=== PATIENT | female | born 1950 | race Caucasian/White ===

== ENCOUNTER 2020-10-25 23:12 | Inpatient (IN) | payer MEDICARE ==
[2020-10-25] MEDS ORDERED: DIAZEPAM 5 MG/ML 2 ML INJ IVP STA (23:45)
--- NOTE | 2020-10-25 23:45 | ED ---
Extremity Problem HPI - General Chief complaint: Extremity Problem,Nontraumatic Stated complaint: Leg Pain Time Seen by Provider: 10/25/20 23:13 Source: patient, EMS Mode of arrival: EMS Limitations: no limitations - History of Present Illness Initial comments: This patient is a 70-year-old woman who presents to be evaluated for left groin and leg spasms. The patient states that she has had these previously. They seem to have flared up over the past 4 days or so. She states that now anytime she tries to move her left leg she has spasms of pain which will last from seconds to minutes. MD Complaint: extremity pain Onset/Timin -: days(s) Location: left, lower extremity History of Same: Yes Consistency: intermittent Improves with: rest Worsens with: other (Movement) Associated Symptoms: denies other symptoms - Related Data Home Medications Medication Instructions Recorded Confirmed Sertraline [Zoloft] 50 mg PO PC-LUNCH 10/26/20 10/26/20 amLODIPine [Norvasc] 5 mg PO DAILY 10/26/20 10/26/20 Allergies Allergy/AdvReac Type Severity Reaction Status Date / Time shellfish derived [Shellfish] Allergy Anaphylaxis Verified 10/26/20 06:51 Review of Systems ROS Statement: Those systems with pertinent positive or pertinent negative responses have been documented in the HPI. ROS Other: All systems not noted in ROS Statement are negative. Constitutional: Denies: fever, chills Respiratory: Denies: cough, dyspnea Cardiovascular: Denies: chest pain, palpitations, orthopnea, edema Gastrointestinal: Denies: abdominal pain, nausea, vomiting, diarrhea Genitourinary: Denies: dysuria, hematuria Musculoskeletal: Reports: myalgia. Denies: back pain, arthralgia Skin: Denies: rash Neurological: Denies: headache, weakness, numbness Past Medical History Past Medical History: Hypertension Additional Past Medical History / Comment(s): Multiple sclerosis History of Any Multi-Drug Resistant Organisms: None Reported Additional Past Surgical History / Comment(s): bladder surgery Past Psychological History: No Psychological Hx Reported Smoking Status: Never smoker Past Alcohol Use History: Occasional Past Drug Use History: None Reported - Past Family History Father Family Medical History: Hypertension Mother Family Medical History: No Reported History Additional Family Medical History / Comment(s): Mother was healthy. General Exam Limitations: no limitations General appearance: alert, in no apparent distress Head exam: Present: atraumatic, normocephalic Eye exam: Present: normal appearance. Absent: scleral icterus, conjunctival inj ection Neck exam: Present: normal inspection, full ROM Respiratory exam: Present: normal lung sounds bilaterally. Absent: respiratory distress, wheezes, rales, rhonchi, stridor Cardiovascular Exam: Present: regular rate, normal rhythm, normal heart sounds. Absent: systolic murmur, diastolic murmur, rubs, gallop GI/Abdominal exam: Present: soft. Absent: distended, tenderness, guarding, rebound, rigid, mass Extremities exam: Present: normal inspection, full ROM, normal capillary refill, other (The patient does have spasm to the left quadriceps which is intermittent. There is moderate tenderness. No bony deformity). Absent: pedal edema, calf tenderness Back exam: Present: normal inspection. Absent: CVA tenderness (R), CVA tenderness (L) Neurological exam: Present: alert. Absent: motor sensory deficit Skin exam: Present: warm, dry, intact, normal color. Absent: rash Course Vital Signs 10/25/20 10/26/20 10/26/20 23:20 01:00 06:57 Temperature 97.0 F L 97.8 F Pulse Rate 90 82 81 Respiratory 18 16 18 Rate Blood Pressure 160/81 156/84 165/95 O2 Sat by Pulse 98 98 98 Oximetry 10/26/20 10/26/20 09:26 11:45 Temperature Pulse Rate 82 80 Respiratory 18 18 Rate Blood Pressure 146/73 155/89 O2 Sat by Pulse 96 99 Oximetry Medical Decision Making - Medical Decision Making Patient is 70-year-old woman with recurrent spasms to the left quadriceps area and left groin area. She did have some symptom relief with analgesic and with Valium as a smooth muscle relaxant. However when attempting to ambulate the spasms return and she was basically not able to support herself. The patient admitted for further symptom management - Lab Data Result diagrams: 10/27/20 05:25 10/25/20 23:51 Lab Results 10/25/20 10/25/20 10/25/20 Range/Units 23:51 23:51 23:51 WBC 6.7 (3.8-10.6) k/uL RBC 4.68 (3.80-5.40) m/uL Hgb 14.1 (11.4-16.0) gm/dL Hct 40.4 (34.0-46.0) % MCV 86.3 (80.0-100.0) fL MCH 30.1 (25.0-35.0) pg MCHC 34.9 (31.0-37.0) g/dL RDW 13.1 (11.5-15.5) % Plt Count 239 (150-450) k/uL MPV 8.3 Neutrophils % 75 % Lymphocytes % 16 % Monocytes % 7 % Eosinophils % 1 % Basophils % 1 % Neutrophils # 5.0 (1.3-7.7) k/uL Lymphocytes # 1.1 (1.0-4.8) k/uL Monocytes # 0.4 (0-1.0) k/uL Eosinophils # 0.0 (0-0.7) k/uL Basophils # 0.1 (0-0.2) k/uL D-Dimer 0.78 H (<0.60) mg/L FEU Sodium 139 (137-145) mmol/L Potassium 3.9 (3.5-5.1) mmol/L Chloride 105 (98-107) mmol/L Carbon Dioxide 21 L (22-30) mmol/L Anion Gap 13 mmol/L BUN 9 (7-17) mg/dL Creatinine 0.58 (0.52-1.04) mg/dL Est GFR (CKD-EPI)AfAm >90 (>60 ml/min/1.73 sqM) Est GFR (CKD-EPI)NonAf >90 (>60 ml/min/1.73 sqM) Glucose 118 H (74-99) mg/dL Calcium 9.5 (8.4-10.2) mg/dL Phosphorus 1.5 L (2.5-4.5) mg/dL Magnesium 1.7 (1.6-2.3) mg/dL Total Bilirubin 0.5 (0.2-1.3) mg/dL AST 33 (14-36) U/L ALT 16 (4-34) U/L Alkaline Phosphatase 79 (38-126) U/L C-Reactive Protein 0.6 (<1.0) mg/dL Total Protein 7.0 (6.3-8.2) g/dL Albumin 4.2 (3.5-5.0) g/dL - EKG Data -: EKG Interpreted by Me EKG shows normal: sinus rhythm (With sinus arrhythmia), axis (Normal), intervals (Normal) Rate: normal (Rate 63 bpm) Interpretation: other (Patient does have Q waves in leads V2 V3 and 4, which have been present previously on some of the ECGs) Disposition Clinical Impression: Intractable pain, Muscle spasm of left lower extremity, Hypophosphatemia Disposition: ADMITTED IP TO THIS [facility] Condition: Fair
[2020-10-26 00:16] LABS: ALT 16 U/L (4-34); AST 33 U/L (14-36); African American GFR (CKD) >90 (>60 ml/min/1.73 sqM); Albumin 4.2 g/dL (3.5-5.0); Alkaline Phosphatase 79 U/L (38-126); Anion Gap 13 mmol/L; Basophils # (A) 0.1 k/uL (0-0.2); Basophils % (A) 1 %; Blood Urea Nitrogen 9 mg/dL (7-17); Calcium 9.5 mg/dL (8.4-10.2); Carbon Dioxide 21 mmol/L (22-30); Chloride 105 mmol/L (98-107); Eosinophils % (A) 1 %; Glucose 118 mg/dL (74-99); HCT 40.4 % (34.0-46.0); HGB 14.1 gm/dL (11.4-16.0); Lymphocytes # (A) 1.1 k/uL (1.0-4.8); Lymphocytes % (A) 16 %; MCH 30.1 pg (25.0-35.0); MCHC 34.9 g/dL (31.0-37.0); MCV 86.3 fL (80.0-100.0); Magnesium 1.7 mg/dL (1.6-2.3); Mean Platelet Volume 8.3; Monocytes # (A) 0.4 k/uL (0-1.0); Monocytes % (A) 7 %; Neutrophils % (A) 75 %; Non-African American GFR(CKD) >90 (>60 ml/min/1.73 sqM); Phosphorus 1.5 mg/dL (2.5-4.5); Platelet Count 239 k/uL (150-450); RBC 4.68 m/uL (3.80-5.40); RDW 13.1 % (11.5-15.5); Sodium 139 mmol/L (137-145); Total Bilirubin 0.5 mg/dL (0.2-1.3); WBC 6.7 k/uL (3.8-10.6)
[2020-10-26 00:22] LABS: Potassium 3.9 mmol/L (3.5-5.1)
--- NOTE | 2020-10-26 00:27 | XR ---
EXAMINATION TYPE: XR femur LT DATE OF EXAM: 10/26/2020 COMPARISON: NONE HISTORY: Femur pain. Fall. TECHNIQUE: 6 views FINDINGS: There is narrowing of the knee joint spaces. The acetabulum is intact. Proximal femur is in tact. There is spurring on the patella. There is some calcification of the menisci at the knee. IMPRESSION: Moderate osteoarthritis and chondrocalcinosis at the knee joint. No fracture seen. No kaela dence of a hip fracture.
[2020-10-26] MEDS ORDERED: POTAS-SOD-PHOS 278-164-250 MG 1 EACH PACKET PO STA (00:33)
[2020-10-26] MEDS ORDERED: SODIUM CHLORIDE 0.9% 1,000 ML IV ONE (00:33)
[2020-10-26 01:01] LABS: C Reactive Protein 0.6 mg/dL (<1.0)
--- NOTE | 2020-10-26 01:05 | US ---
EXAMINATION TYPE: US venous doppler duplex LE LT DATE OF EXAM: 10/26/2020 12:56 AM COMPARISON: NONE CLINICAL HISTORY: leg pain. Patient stated has MS and has left leg pain, swelling, muscle cramps, spa sms x 3 weeks; ambulates with walker and stated her back has been sore SIDE PERFORMED: Left TECHNIQUE: The lower extremity deep venous system is examined utilizing real time linear array sonog breanna with graded compression, doppler sonography and color-flow sonography. VESSELS IMAGED: Common Femoral Vein Deep Femoral Vein Greater Saphenous Vein * Femoral Vein: limited compression as unable to compress mid and distally due to patient's intolerance of this maneuver with painful left leg. Popliteal Vein Small Saphenous Vein * Proximal Calf Veins (* superficial vessels) Left Leg: Negative for DVT. IMPRESSION: No evidence of deep vein thrombosis in the left leg.
[2020-10-26] MEDS ORDERED: NALOXONE 0.4 MG/ML 1 ML VIAL IV PRN (01:42)
[2020-10-26] MEDS ORDERED: MORPHINE SULFATE 4 MG/ML SYRINGE IV STA (01:46)
[2020-10-26] MEDS: LACTATED RINGERS 1,000 ML IV SCH ×3 (02:42→17:19)
[2020-10-26] MEDS: ONDANSETRON 4 MG/2 ML VIAL IVP PRN ×2 (06:54→12:58)
[2020-10-26] MEDS: POTAS-SOD-PHOS 278-164-250 MG 1 EACH PACKET PO SCH ×3 (09:27→22:05)
[2020-10-26] MEDS: amLODIPine 5 MG TAB PO SCH (09:27)
[2020-10-26] MEDS ORDERED: Phosphorus Replacement Protoco 1 EACH MISC MISCELLANE PRN (11:18)
[2020-10-26] MEDS ORDERED: DEXAMETHASONE SOD PHOSPHATE 10 MG/ML 1 ML VIAL IV STA (11:45)
[2020-10-26] MEDS ORDERED: LORazepam 2 MG/ML INJ IV PRN (11:52)
--- NOTE | 2020-10-26 12:06 | P.HPIM ---
History of Present Illness This is a pleasant 70 years old female with past medical history of multiple sclerosis and hypertension. She is from [place] and visiting [place] from August to January. Her PCP at [place] is Dr. Harris (not sure of spelling !!) Patient presents because of muscle spasm in the left lower extremity. Her left leg becomes has been going on for the last month, she cannot sleep tenderness in certain ways because of her leg pain. Last night. Left leg pain was significantly worse so she decided to come to emergency room. She rates her pain at 8/10. Also patient could not walk yesterday. States that she has weakness in her left leg also for years but got worse lately and yesterday she hardly couldn't walk. Currently she has difficulty extending her knee and flex and hurt her left hip. Else patient denies headache but she has some dizziness that time and she felt few weeks ago. She also has some pain in her left hip with tenderness She states that she has chronic low back pain that securely get worse, this year it was the worst, she rates her back pain as 5/10. And try to get into the left side Patient denies any abdominal pain, no nausea vomiting, no change in bowel habits Patient says that she has chronic hesitancy with urination for years, she has to wait 10 minutes before urination/initiation. Patient states that she's been diagnosed with an normal hiatal about 25 years ago for numbness in both feet and fingers/hand, and that time it partially improved with prednisone. The symptoms are chronic with no recent worsening. Follow-up with the neurologist She denies smoking, alcohol or illicit drugs Vitas looks stable, patient is afebrile, there is slightly elevated at 146/73. CBC and BMP and liver enzymes are unremarkable except for low phosphorus at 1.5. C-reactive protein is normal at 0.6. Coronary first not detected D-dimer is 0.78. Doppler of the left lower extremity is negative for DVT Left femoral x-ray: chondrocalcinosis in the left knee joint. No evidence of hip fracture In the emergency room patient given Valium 5 mg and 1 L of normal saline. Review of Systems CONSTITUTIONAL: No fever, no malaise, no fatigue. HEENT: No recent visual problems or hearing problems. Denied any sore throat. CARDIOVASCULAR: No orthopnea, PND, no palpitations, no syncope. PULMONARY: No shortness of breath, no cough, no hemoptysis. GASTROINTESTINAL: No diarrhea, no nausea, no vomiting, no abdominal pain. Normoactive bowel sounds. NEUROLOGICAL: No headaches, no tremor HEMATOLOGICAL: Denies any bleeding or petechiae. GENITOURINARY: Denies any burning micturition, frequency, or urgency. MUSCULOSKELETAL/RHEUMATOLOGICAL: Denies any joint pain, swelling ENDOCRINE: Denies any polyuria or polydipsia. Past Medical History Past Medical History: Hypertension Additional Past Medical History / Comment(s): Multiple sclerosis History of Any Multi-Drug Resistant Organisms: None Reported Additional Past Surgical History / Comment(s): bladder surgery Past Psychological History: No Psychological Hx Reported Smoking Status: Never smoker Past Alcohol Use History: Occasional Past Drug Use History: None Reported Medications and Allergies Home Medications Medication Instructions Recorded Confirmed Type Sertraline [Zoloft] 50 mg PO PC-LUNCH 10/26/20 10/26/20 History amLODIPine [Norvasc] 5 mg PO DAILY 10/26/20 10/26/20 History Allergies Allergy/AdvReac Type Severity Reaction Status Date / Time shellfish derived [Shellfish] Allergy Anaphylaxis Verified 10/26/20 06:51 Physical Exam Vitals: Vital Signs Temp Pulse Resp BP Pulse Ox 10/26/20 09:26 82 18 146/73 96 10/26/20 06:57 97.8 F 81 18 165/95 98 10/26/20 01:00 82 16 156/84 98 10/25/20 23:20 97.0 F L 90 18 160/81 98 Intake and Output 10/25/20 10/26/20 10/26/20 22:59 06:59 14:59 Other: Weight 77.111 kg GENERAL: The patient is alert and oriented x3, not in any acute distress. Well developed, well nourished. HEENT: Pupils are round and equally reacting to light. EOMI. No scleral icterus. No conjunctival pallor. Normocephalic, atraumatic. No pharyngeal erythema. No thyromegaly. CARDIOVASCULAR: S1 and S2 present. No murmurs, rubs, or gallops. PULMONARY: Chest is clear to auscultation, no wheezing or crackles. ABDOMEN: Soft, nontender, nondistended, normoactive bowel sounds. No palpable organomegaly. MUSCULOSKELETAL: No joint swelling or deformity. EXTREMITIES: No cyanosis, clubbing, or pedal edema. -NEUROLOGICAL: Cranial nerves are grossly intact . Limited extension of the left knee and excision of the left hip. Strength in upper extremities are 5/5. Patient is intact. No signs are absent SKIN: No rashes. No petechiae Results CBC & Chem 7: 10/25/20 23:51 10/25/20 23:51 Labs: Abnormal Lab Results - Last 24 Hours (Table) 10/25/20 10/25/20 Range/Units 23:51 23:51 D-Dimer 0.78 H (<0.60) mg/L FEU Carbon Dioxide 21 L (22-30) mmol/L Glucose 118 H (74-99) mg/dL Phosphorus 1.5 L (2.5-4.5) mg/dL Assessment and Plan Assessment: progressive Left leg weakness and pain over the last month associated with low back pain. Rule out lumbar stenosis or cauda equina syndrome. Difficulty walking secondary to above Significant hypophosphatemia Chronic urinary hesitancy Essential hypertension Multiple sclerosis with chronic numbness of feet and hands as per patient Plan: This is a pleasant 70 years old female presents with left spasm and low phosphorus. Replaced phosphorus per protocol. Muscle relaxants. Consult Dr. Ibanez spine surgery. We will order stat MRI of the lumbar spine. Start the patient on dexamethasone. Check a bladder scan and urinalysis labs and medication were reviewed.. Continue same treatment. Continue with symptomatic treatment. Resume home medication. Monitor lytes and vitals. DVT and GI prophylaxis. Further recommendations depends on the clinical course of the patient DVT prophylaxis: Subcutaneous heparin. To be initiated after MRI results GI Prophylaxis: Pepcid PT/OT: Pending Prognosis is guarded
--- NOTE | 2020-10-26 12:30 | XR ---
EXAMINATION TYPE: XR Hip Complete LT DATE OF EXAM: 10/26/2020 CLINICAL HISTORY: Left hip pain, history of fall TECHNIQUE: AP and frogleg views of the left hip are obtained. COMPARISON: None. FINDINGS: There is no acute fracture/dislocation evident in the left hip. There are degenerative reena nges in the left hip. IMPRESSION: There is no acute fracture or dislocation in the left hip.
[2020-10-26] MEDS: MORPHINE SULFATE 4 MG/ML SYRINGE IVP PRN ×2 (12:51→23:57)
[2020-10-26] MEDS: DEXAMETHASONE SOD PHOSPHATE 4 MG/ML 1 ML VIAL IV SCH ×3 (13:00→23:57)
[2020-10-26] MEDS: SERTRALINE 50 MG TAB PO SCH (13:06)
--- NOTE | 2020-10-26 15:08 | MR ---
EXAMINATION TYPE: MR lumbar spine wo con DATE OF EXAM: 10/26/2020 COMPARISON: None HISTORY: Left leg weakness, and pain. TECHNIQUE: Multiplanar, multisequence images of the lumbar spine were acquired. L1-L2: Normal disc appearance without desiccation. No herniation, protrusion or disc bulging. No ca nal stenosis is present. Foramina are patent bilaterally. L2-L3: Minimal posterior broad-based disc bulge causes slight anterior mass effect on the thecal sac. There is some facet arthropathy change. L3-L4: There is a posterior central disc bulge causing mild anterior mass effect on the thecal sac. F acet arthropathy with hypertrophy ligamentum flavum causes posterior lateral mass effect on the theca l sac. No significant foraminal encroachment. L4-L5: No disc herniation. Listhesis contributes to cause foraminal encroachment. There is facet arth ropathy change present causing some posterior lateral mass effect on the thecal sac. L5-S1: Listhesis contributes to cause bilateral foraminal encroachment. No evident disc herniation. T here is facet arthropathy change. Lateral mass effect is present due to the hypertrophic changes at t he facets, some reduced transverse dimension of the spinal canal is present and there is some encroac hment on the lateral recesses. There is an apparent mass effect on the left lateral thecal sac, axial image #12, this causes some ob liquely-oriented intermediate signal focus on sagittal image 8 on the spinal canal possibly related t o the dura, no evident abnormal soft tissue mass is present. Lumbar segments are remarkable for anterolisthesis grade 1 at L4-5, L5-S1 shows anterolisthesis grade 1 to grade 2, bilateral spondylolysis is suspected at L5, there is associated loss of disc height si gnal greatest at L5-S1, there is endplate discogenic marrow signal change, multilevel spondylosis, no significant central stenosis. No paraspinal masses are identified. Conus medullaris has a normal a ppearance. Accentuated lordosis is present at the lower lumbar spine. There is a slight spinal curvat ure. The common bile duct the level of the head of the pancreas measures 13 mm. There is an extrarenal pel vis right kidney. IMPRESSION: Analysis L5 with spondylolisthesis grade 1 to grade 2, degenerative disc disease as described with mu ltilevel facet arthropathy, foraminal encroachment. Dilated common bile duct, indeterminate. Unusual appearance to the dura at the level of L5-S1, contrast-enhanced exam may be of benefit.
[2020-10-26 23:21] LABS: Appearance,Urine Clear (Clear); Bilirubin,Urine Negative (Negative); Blood,Urine Negative (Negative); Color,Urine Light Yellow; Glucose,Urine (UA) Negative (Negative); Ketones,Urine Negative (Negative); Leukocyte Esterase,Urine Negative (Negative); Nitrite,Urine Negative (Negative); PH, Urine 6.5 (5.0-8.0); Protein,Urine Negative (Negative); Specific Gravity,Urine 1.006 (1.001-1.035); Urobilinogen,Urine <2.0 mg/dL (<2.0)
[2020-10-27] MEDS: LACTATED RINGERS 1,000 ML IV SCH ×3 (02:12→19:31)
[2020-10-27] MEDS: DEXAMETHASONE SOD PHOSPHATE 4 MG/ML 1 ML VIAL IV SCH ×4 (05:13→23:44)
[2020-10-27 06:07] LABS: Basophils % (A) 0 %; Eosinophils % (A) 0 %; HCT 39.7 % (34.0-46.0); Lymphocytes # (A) 0.7 k/uL (1.0-4.8); Lymphocytes % (A) 13 %; MCH 29.2 pg (25.0-35.0); MCHC 32.8 g/dL (31.0-37.0); Mean Platelet Volume 7.8; Monocytes # (A) 0.3 k/uL (0-1.0); Monocytes % (A) 5 %; Neutrophils # (A) 4.2 k/uL (1.3-7.7); Neutrophils % (A) 81 %; Platelet Count 202 k/uL (150-450); RBC 4.46 m/uL (3.80-5.40); RDW 13.6 % (11.5-15.5); WBC 5.2 k/uL (3.8-10.6)
[2020-10-27] MEDS: TAMSULOSIN 0.4 MG CAP.ER.24H PO SCH (07:39)
[2020-10-27] MEDS: HEPARIN SODIUM,PORCINE/PF 5,000 UNIT/0.5 ML SYRINGE SQ SCH ×2 (07:39→21:49)
[2020-10-27] MEDS: POTAS-SOD-PHOS 278-164-250 MG 1 EACH PACKET PO SCH ×3 (07:39→21:49)
[2020-10-27] MEDS: amLODIPine 5 MG TAB PO SCH (07:39)
[2020-10-27 11:49] LABS: Glucose,Whole Blood 102 mg/dL (75-99)
[2020-10-27] MEDS: SERTRALINE 50 MG TAB PO SCH (12:31)
--- NOTE | 2020-10-27 12:38 | P.GSCN ---
History of Present Illness Consult date: 10/27/20 History of present illness: This is a pleasant 70-year-old female with advanced multiple sclerosis who presented to the emergency room because of severe left sided lower abdominal and left leg pain. She has not seen a neurologist for several years and she went through all the neurologic treatments for her MS and they had ceased working. She stated over the last couple years she has had increased problems with walking. It was getting worse such that she sought neurologic care in [place] where she lives most of the year however due to insurance reasons was not able to see a neurologist. She has been up in [place] since August. She is here until early January. She developed the neurologic issues and thus presented to the emergency room. She is feeling much better. She had an MRI. During this hospitalization she has noticed to have incomplete emptying and we're asked see the patient. Urologically the patient states for the last couple years she has had increasing difficulty with urination. 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 Her residual this afternoon was 225 mL at about 45 minutes postvoid. She denies infection. She has occasional incontinence. There is no stone. There is no previous urologic history. Urine was clear. Her urine is clear Review of Systems Review of systems are normal except for that related to the history and physical All systems: negative Past Medical History Past Medical History: Hypertension Additional Past Medical History / Comment(s): Multiple sclerosis History of Any Multi-Drug Resistant Organisms: None Reported Past Surgical History: Cholecystectomy Additional Past Surgical History / Comment(s): bladder surgery Past Anesthesia/Blood Transfusion Reactions: No Reported Reaction Past Psychological History: No Psychological Hx Reported Smoking Status: Never smoker Past Alcohol Use History: Occasional Past Drug Use History: None Reported - Past Family History Father Family Medical History: Hypertension Mother Family Medical History: No Reported History Additional Family Medical History / Comment(s): Mother was healthy. Medications and Allergies Home Medications Medication Instructions Recorded Confirmed Type Sertraline [Zoloft] 50 mg PO PC-LUNCH 10/26/20 10/26/20 History amLODIPine [Norvasc] 5 mg PO DAILY 10/26/20 10/26/20 History Allergies Allergy/AdvReac Type Severity Reaction Status Date / Time shellfish derived [Shellfish] Allergy Anaphylaxis Verified 10/26/20 06:51 Surgical - Exam Vital Signs Temp Pulse Resp BP Pulse Ox 97.0 F L 90 18 160/81 98 10/25/20 23:20 10/25/20 23:20 10/25/20 23:20 10/25/20 23:20 10/25/20 23:20 - General well developed, well nourished, no distress - Eyes PERRL - ENT no hearing loss - Neck trachea midline - Respiratory normal expansion, normal respiratory effort - Cardiovascular Rhythm: regular - Abdomen Abdomen: soft, non tender - Neurologic normal sensation - Musculoskeletal normal posture - Psychiatric oriented to time, oriented to person, oriented to place, speech is normal, memory intact Results - Labs 10/27/20 05:25 10/25/20 23:51 Abnormal Lab Results - Last 24 Hours (Table) 10/27/20 10/27/20 Range/Units 05:25 11:47 Lymphocytes # 0.7 L (1.0-4.8) k/uL POC Glucose (mg/dL) 102 H (75-99) mg/dL - Imaging Additional studies: MRI of the lumbar spine report reviewed Assessment and Plan Assessment: Impression: Advanced multiple sclerosis. Left leg pain. Abnormal MRI as noted per radiology interpretation. Incomplete bladder emptying consistent with neurogenic bladder from multiple sclerosis Recommendations: We'll intermittently check urine residuals. At this point in time I do not think she needs to be catheterized earlier attempt intermittent catheterization. She was started on Flomax but due to the detrusor sphincter dyssynergia it usually does not help. I will follow with you. Time with Patient: Greater than 30
[2020-10-27 12:45] VITALS: BMI 28.3
[2020-10-27 14:06] LABS: African American GFR (CKD) 112.1 (60.0-200.0); Anion Gap 8.3 mmol/L (4.00-12.00); Carbon Dioxide 24.7 mmol/L (21.6-31.8); Non-African American GFR(CKD) 96.7 (60.0-200.0); Phosphorus 3.8 mg/dL (2.4-5.1); Potassium 3.7 mmol/L (3.5-5.5)
--- NOTE | 2020-10-27 16:12 | P.CNOR ---
History of Present Illness - [facility] Consult date: 10/27/20 Consult reason: other (Left lower extremity pain) History of present illness: Patient is a 70-year-old female presented to [facility] due to severe muscle spasms and pain involving the left lower extremity. Patient is a resident of [place], she spends 4-5 months admission and every summer visiting family and friends. patient has a relatively detailed medical history, this concluded diagnosis of MS, she was diagnosed over 25 years ago. According the patient, she has been on many different medications. She has not followed up with a neurologist in over 5 years and currently is not taking any numbness medications. Patient states that her gait has gotten worse over the last few years, es pecially in the last 2-3 months. She utilizes a walker at all times. She is noticed the muscle spasms on the left lower extremity have also worsened in the last 2-3 months, in the last week she states it's become unbearable. She notes numbness and tingling in the bilateral upper extremities, more specifically the hands and fingers, she also notices this in the lower extremities more specifically in the bilateral feet. She has a difficult time with ambulation due to feeling unsteady when walking. She denies any acute trauma, she states that her last fall was about 2 months ago. Patient denies any previous surgery of the lower extremities or lumbar, thoracic or cervical spine. Patient denies any severe weakness involving the upper extremities. She notes weakness in the left lower extremity since the spasming is Worse over the last week. Patient denies any numbness or tingling in the genital region or perineal region. She denies any loss of bowel or bladder control. Patient does admit that she fails to empty her bladder on most occasions, this is for quite some time. Review of Systems Constitutional: Reports as per HPI Past Medical History Past Medical History: Hypertension Additional Past Medical History / Comment(s): Multiple sclerosis History of Any Multi-Drug Resistant Organisms: None Reported Past Surgical History: Cholecystectomy Additional Past Surgical History / Comment(s): bladder surgery Past Anesthesia/Blood Transfusion Reactions: No Reported Reaction Past Psychological History: No Psychological Hx Reported Smoking Status: Never smoker Past Alcohol Use History: Occasional Past Drug Use History: None Reported - Past Family History Father Family Medical History: Hypertension Mother Family Medical History: No Reported History Additional Family Medical History / Comment(s): Mother was healthy. Medications and Allergies Home Medications Medication Instructions Recorded Confirmed Type Sertraline [Zoloft] 50 mg PO PC-LUNCH 10/26/20 10/26/20 History amLODIPine [Norvasc] 5 mg PO DAILY 10/26/20 10/26/20 History Allergies Allergy/AdvReac Type Severity Reaction Status Date / Time shellfish derived [Shellfish] Allergy Anaphylaxis Verified 10/26/20 06:51 Physical Examination Gen: AOx3, NAD VSS stable at this time Integument: No open lesions or sores are visualized throughout the cervical, thoracic, lumbar region. There is no open lesions or sores present about the left lower extremity. Palpation: Patient is nontender with palpation throughout the cervical, thoracic or lumbar region including the midline or paraspinal. She is nontender with palpation throughout the left lower extremity ROM: Full range of motion in all major muscle groups of the bilateral upper extremities Full range of motion in all major muscle groups of the right lower extremity, left lower extremity range of motion is limited with hip flexion along with knee flexion and knee extension due to pain. Plantar flexion, dorsiflexion, EHL, FHL are intact Sensory Exam: Senory exam to light touch is intact C5-T1 Senosry exam to light touch is intact L2-S1 Motor: 5 out of 5 strength is appreciated in the bilateral upper extremities with shoulder abduction, forward elevation, elbow extension, elbow flexion, wrist extension, wrist flexion, intrinsics 5 out of 5 strength is appreciated in the right lower extremity with hip flexion, knee extension, knee flexion, plantar flexion, dorsiflexion, EHL, FHL. 4 out of 5 strength is appreciated in the left lower extremity with plantar flexion, dorsiflexion, EHL, FHL. 3 out of 5 strength is appreciated with knee extension, knee flexion, hip flexion. Special tests: Negative Obey's, negative Babinski, negative clonus bilaterally More specific exam of the left lower extremity demonstrates no point tenderness with palpation surrounding the foot or ankle, knee, hip, greater trochanteric region. Passive range of motion is very difficult due to the severe stiffness, mainly with internal and external rotation along with flexion of the hip. Results - Labs Labs: Abnormal Lab Results - Last 24 Hours (Table) 10/27/20 10/27/20 10/27/20 Range/Units 05:25 05:25 11:47 Lymphocytes # 0.7 L (1.0-4.8) k/uL Chloride 110 H (96-109) mmol/L BUN 6.0 L (9.0-27.0) mg/dL Creatinine 0.5 L (0.6-1.5) mg/dL Glucose 133 H (70-110) mg/dL POC Glucose (mg/dL) 102 H (75-99) mg/dL H & H 10/25/20 10/27/20 Range/Units 23:51 05:25 Hgb 14.1 13.0 (11.4-16.0) gm/dL Hct 40.4 39.7 (34.0-46.0) % Result Diagrams: 10/27/20 05:25 10/27/20 05:25 - Diagnostic results Lumbar MRI with contrast: report reviewed, image reviewed Assessment and Plan Assessment: Left lower extremity pain Left lower extremity muscle spasm/cramping L4-L5 grade 1 spondylolisthesis L5-S1 grade 2 spondylolisthesis Multilevel lumbar spine spondylosis Multiple sclerosis Other medical comorbidities Plan: I was able to discuss the case, including with physical exam findings and imaging studies my attending Dr. Fung. No emergent orthopedic surgical intervention recommended at this time. MRI finding do demonstrate the L4-L5 and L5-S1 spondylolisthesis, chronic in nature. Taking in consideration the patient's history of MS and not having any treatment in many years, this is also likely an exacerbation of those. After reviewing urology's note, this is likely also the cause of her urinary retention. Patient did admit that after receiving the initial dose of the IV steroids she did notice improvement. We would recommend continuing those at this time. 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 GI and DVT prophylaxis per primary medical service Recommend weightbearing as tolerated with walker all times, PT evaluation We will continue to follow during inpatient stay Time with Patient: Less than 30
[2020-10-27] MEDS: CYCLOBENZAPRINE 10 MG TAB PO PRN (17:44)
[2020-10-27] MEDS: GABAPENTIN 300 MG CAP PO SCH (17:45)
--- NOTE | 2020-10-27 20:44 | P.PN ---
Subjective This is a pleasant 70 years old female with past medical history of multiple sclerosis and hypertension. She is from [place] and visiting [place] from August to January. Her PCP at [place] is Dr. Harris (not sure of spelling !!) Patient presents because of muscle spasm in the left lower extremity. Her left leg becomes has been going on for the last month, she cannot sleep tenderness in certain ways because of her leg pain. Last night. Left leg pain was significantly worse so she decided to come to emergency room. She rates her pain at 8/10. Also patient could not walk yesterday. States that she has weakness in her left leg also for years but got worse lately and yesterday she hardly couldn't walk. Currently she has difficulty extending her knee and flex and hurt her left hip. Else patient denies headache but she has some dizziness that time and she felt few weeks ago. She also has some pain in her left hip with tenderness She states that she has chronic low back pain that securely get worse, this year it was the worst, she rates her back pain as 5/10. And try to get into the left side Patient denies any abdominal pain, no nausea vomiting, no change in bowel habits Patient says that she has chronic hesitancy with urination for years, she has to wait 10 minutes before urination/initiation. Patient states that she's been diagnosed with an normal hiatal about 25 years ago for numbness in both feet and fingers/hand, and that time it partially improved with prednisone. The symptoms are chronic with no recent worsening. Follow-up with the neurologist She denies smoking, alcohol or illicit drugs Vitas looks stable, patient is afebrile, there is slightly elevated at 146/73. CBC and BMP and liver enzymes are unremarkable except for low phosphorus at 1.5. C-reactive protein is normal at 0.6. Coronary first not detected D-dimer is 0.78. Doppler of the left lower extremity is negative for DVT Left femoral x-ray: chondrocalcinosis in the left knee joint. No evidence of hip fracture In the emergency room patient given Valium 5 mg and 1 L of normal saline. 10/27/2020 Patient today stating sick improvement but partial in her left leg spasm, pain and weakness." Whatever you do it is helping me" Patient's MRI showing chronic changes with no significant spinal stenosis. Patient has L4-L5 grade 1 spondylolisthesis, L5-S1 grade 2 spondylolisthesis, Multilevel lumbar spine spondylosis. Also left knee x-ray shows severe osteoarthritis. Orthopedic team recommended physical therapy and follow-up outpatient for possible surgical management discussion with the patient. Patient with chronic urinary retention, urologist think it's neurogenic bladder related to MS We will consult neurology service for possible M multiple sclerosis flareup. Continue with dexamethasone for now. Discontinue Ringer lactate. Continue with Attempting and flexor Review of Systems CONSTITUTIONAL: No fever, no malaise, no fatigue. HEENT: No recent visual problems or hearing problems. Denied any sore throat. CARDIOVASCULAR: No orthopnea, PND, no palpitations, no syncope. PULMONARY: No shortness of breath, no cough, no hemoptysis. GASTROINTESTINAL: No diarrhea, no nausea, no vomiting, no abdominal pain. Normoa ctive bowel sounds. NEUROLOGICAL: No headaches, no tremor Active Medications Generic Name Dose Route Start Last Admin Trade Name Freq PRN Reason Stop Dose Admin Amlodipine Besylate 5 mg 10/26/20 09:15 10/27/20 07:39 Amlodipine 5 Mg Tab PO 5 mg DAILY JERONIMO Administration Cyclobenzaprine HCl 10 mg 10/27/20 15:58 10/27/20 17:44 Cyclobenzaprine 10 Mg Tab PO 10 mg BID PRN Administration Muscle Spasm Dexamethasone Sodium Phosphate 4 mg 10/26/20 18:00 10/27/20 15:16 Dexamethasone Sod Phosphate 4 Mg/Ml 1 Ml Vial IV 4 mg Q6HR JERONIMO Administration Gabapentin 300 mg 10/27/20 21:00 10/27/20 17:45 Gabapentin 300 Mg Cap PO 300 mg BID JERONIMO Administration Heparin Sodium (Porcine) 5,000 unit 10/27/20 09:00 10/27/20 07:39 Heparin Sodium,Porcine/Pf 5,000 Unit/0.5 Ml Syringe SQ 5,000 unit Q12HR JERONIMO Administration Lorazepam 0.5 mg 10/26/20 11:52 10/26/20 13:55 Lorazepam 2 Mg/Ml Inj IV 0.5 mg ONCE PRN Administration Severe Anxiety Miscellaneous Information 1 each 10/26/20 11:18 Phosphorus Replacement Protoco 1 Each Misc MISCELLANE DAILY PRN Per Protocol Protocol Morphine Sulfate 4 mg 10/26/20 11:46 10/26/20 23:57 Morphine Sulfate 4 Mg/Ml Syringe IVP 4 mg Q4HR PRN Administration Pain Naloxone HCl 0.2 mg 10/26/20 01:42 Naloxone 0.4 Mg/Ml 1 Ml Vial IV Q2M PRN Opioid Reversal Ondansetron HCl 4 mg 10/26/20 06:45 10/26/20 12:58 Ondansetron 4 Mg/2 Ml Vial IVP 4 mg Q8HR PRN Administration Nausea Potassium Phos/Sodium Phos 1 each 10/26/20 09:00 10/27/20 15:15 Hcghn-Gne-Hmyo [id number] Mg 1 Each Packet PO 1 each TID JERONIMO Administration Sertraline HCl 50 mg 10/26/20 13:30 10/27/20 12:31 Sertraline 50 Mg Tab PO 50 mg PC-LUNCH JERONIMO Administration Tamsulosin HCl 0.4 mg 10/27/20 08:30 10/27/20 07:39 Tamsulosin 0.4 Mg Cap.Er.24h PO 0.4 mg PC-BRKFST JERONIMO Administration Objective - Vital Signs Vital signs: Vital Signs Temp 97.9 F 10/27/20 20:25 Pulse 72 10/27/20 20:25 Resp 16 10/27/20 20:25 BP 130/66 10/27/20 20:25 Pulse Ox 94 L 10/27/20 20:25 Intake & Output 10/27/20 10/27/20 10/28/20 06:59 18:59 06:59 Intake Total 1500 1000 Output Total 440 Balance 1500 560 Weight 77.111 kg Intake: Intake, IV Titration 1500 1000 Amount Lactated Ringers 1,000 ml 1500 1000 @ 125 mls/hr IV .Q8H [facility] Rx#:[id number] Output: Post Void Residual 440 Other: Voiding Method Bedside Commode Bedside Commode Bedside Commode # Voids 1 1 - Labs CBC & Chem 7: 10/27/20 05:25 10/27/20 05:25 Labs: Abnormal Lab Results - Last 24 Hours (Table) 10/27/20 10/27/20 10/27/20 Range/Units 05:25 05:25 11:47 Lymphocytes # 0.7 L (1.0-4.8) k/uL Chloride 110 H (96-109) mmol/L BUN 6.0 L (9.0-27.0) mg/dL Creatinine 0.5 L (0.6-1.5) mg/dL Glucose 133 H (70-110) mg/dL POC Glucose (mg/dL) 102 H (75-99) mg/dL Assessment and Plan Assessment: progressive Left leg weakness and pain over the last month associated with low back pain. Chronic back pain with 4-L5 grade 1 spondylolisthesis, L5-S1 grade 2 spondylolisthesis Severe left knee osteoarthritis Difficulty walking secondary to above Significant hypophosphatemia Chronic urinary hesitancy Essential hypertension Multiple sclerosis with chronic numbness of feet and hands as per patient Plan: This is a pleasant 70 years old female presents with left spasm and low phosphorus. Replaced phosphorus per protocol. Muscle relaxants. Consult Dr. Ibanez spine surgery. We will order stat MRI of the lumbar spine. Start the patient on dexamethasone. Check a bladder scan and urinalysis labs and medication were reviewed.. Continue same treatment. Continue with symptomatic treatment. Resume home medication. Monitor lytes and vitals. DVT and GI prophylaxis. Further recommendations depends on the clinical course of the patient DVT prophylaxis: Subcutaneous heparin. To be initiated after MRI results GI Prophylaxis: Pepcid PT/OT: Pending Prognosis is guarded
[2020-10-28] MEDS: DEXAMETHASONE SOD PHOSPHATE 4 MG/ML 1 ML VIAL IV SCH ×4 (05:32→23:46)
--- NOTE | 2020-10-28 07:04 | P.PN ---
Subjective This is a pleasant 70 years old female with past medical history of multiple sclerosis and hypertension. She is from [place] and visiting [place] from August to January. Her PCP at [place] is Dr. Harris (not sure of spelling !!) Patient presents because of muscle spasm in the left lower extremity. Her left leg becomes has been going on for the last month, she cannot sleep tenderness in certain ways because of her leg pain. Last night. Left leg pain was significantly worse so she decided to come to emergency room. She rates her pain at 8/10. Also patient could not walk yesterday. States that she has weakness in her left leg also for years but got worse lately and yesterday she hardly couldn't walk. Currently she has difficulty extending her knee and flex and hurt her left hip. Else patient denies headache but she has some dizziness that time and she felt few weeks ago. She also has some pain in her left hip with tenderness She states that she has chronic low back pain that securely get worse, this year it was the worst, she rates her back pain as 5/10. And try to get into the left side Patient denies any abdominal pain, no nausea vomiting, no change in bowel habits Patient says that she has chronic hesitancy with urination for years, she has to wait 10 minutes before urination/initiation. Patient states that she's been diagnosed with an normal hiatal about 25 years ago for numbness in both feet and fingers/hand, and that time it partially improved with prednisone. The symptoms are chronic with no recent worsening. Follow-up with the neurologist She denies smoking, alcohol or illicit drugs Vitas looks stable, patient is afebrile, there is slightly elevated at 146/73. CBC and BMP and liver enzymes are unremarkable except for low phosphorus at 1.5. C-reactive protein is normal at 0.6. Coronary first not detected D-dimer is 0.78. Doppler of the left lower extremity is negative for DVT Left femoral x-ray: chondrocalcinosis in the left knee joint. No evidence of hip fracture In the emergency room patient given Valium 5 mg and 1 L of normal saline. 10/27/2020 Patient today stating sick improvement but partial in her left leg spasm, pain and weakness." Whatever you do it is helping me" Patient's MRI showing chronic changes with no significant spinal stenosis. Patient has L4-L5 grade 1 spondylolisthesis, L5-S1 grade 2 spondylolisthesis, Multilevel lumbar spine spondylosis. Also left knee x-ray shows severe osteoarthritis. Orthopedic team recommended physical therapy and follow-up outpatient for possible surgical management discussion with the patient. Patient with chronic urinary retention, urologist think it's neurogenic bladder related to MS We will consult neurology service for possible M multiple sclerosis flareup. Continue with dexamethasone for now. Discontinue Ringer lactate. Continue with Attempting and flexor 10/28/2020 Patient still complains from some weakness and tenderness in the left upper lateral thigh. Although she reports also little improvement compared to yesterday. Patient also with neurogenic bladder. Secondary to MS. No need for Molina catheter per Dr. Marquez. Vitals stable. Labs from yesterday showing no change and stable. Urine analysis negative. Gabapentin and flexor are added yesterday with little help. IV fluids stopped. Patient remains on dexamethasone 4 mg We will call neurology consult today Objective - Vital Signs Vital signs: Vital Signs Temp 97.8 F 10/28/20 04:28 Pulse 64 10/28/20 04:28 Resp 16 10/28/20 04:28 BP 109/65 10/28/20 04:28 Pulse Ox 97 10/28/20 04:28 Intake & Output 10/27/20 10/27/20 10/28/20 06:59 18:59 06:59 Intake Total 1500 1000 500 Output Total 440 260 Balance 1500 560 240 Weight 77.111 kg Intake: Intake, IV Titration 1500 1000 500 Amount Lactated Ringers 1,000 ml 1500 1000 500 @ 125 mls/hr IV .Q8H [facility] Rx#:[id number] Output: Post Void Residual 440 260 Other: Voiding Method Bedside Commode Bedside Commode Bedside Commode # Voids 1 1 1 - Exam GENERAL: The patient is alert and oriented x3, not in any acute distress. Well developed, well nourished. HEENT: Pupils are round and equally reacting to light. EOMI. No scleral icterus. No conjunctival pallor. Normocephalic, atraumatic. No pharyngeal erythema. No thyromegaly. CARDIOVASCULAR: S1 and S2 present. No murmurs, rubs, or gallops. PULMONARY: Chest is clear to auscultation, no wheezing or crackles. ABDOMEN: Soft, nontender, nondistended, normoactive bowel sounds. No palpable organomegaly. -MUSCULOSKELETAL: No joint swelling or deformity. Upper lateral tenderness of the left thigh. Mild with no deformity or rash EXTREMITIES: No cyanosis, clubbing, or pedal edema. -NEUROLOGICAL: Cranial nerves are grossly intact . Limited extension of the left knee and flexion of the left hip. Strength in upper extremities are 5/5, . Patient is intact. No signs are absent SKIN: No rashes. No petechiae - Labs CBC & Chem 7: 10/27/20 05:25 10/27/20 05:25 Labs: Abnormal Lab Results - Last 24 Hours (Table) 10/27/20 10/27/20 Range/Units 05:25 11:47 Chloride 110 H (96-109) mmol/L BUN 6.0 L (9.0-27.0) mg/dL Creatinine 0.5 L (0.6-1.5) mg/dL Glucose 133 H (70-110) mg/dL POC Glucose (mg/dL) 102 H (75-99) mg/dL Assessment and Plan Assessment: progressive Left leg weakness and pain over the last month Neurogenic bladder Multiple sclerosis with chronic numbness of feet and hands as per patient Chronic back pain with 4-L5 grade 1 spondylolisthesis, L5-S1 grade 2 spondylolisthesis Severe left knee osteoarthritis Difficulty walking secondary to above hypophosphatemia, improved Chronic urinary hesitancy Essential hypertension Plan: This is a pleasant 70 years old female presents with left spasm and low phosphorus. Replaced phosphorus per protocol. Muscle relaxants. Consult orthopedic team. Continue with dexamethasone. Several consults on the case including orthopedic, urologist. Neurology consult labs and medication were reviewed.. Continue same treatment. Continue with symptomatic treatment. Resume home medication. Monitor lytes and vitals. DVT and GI prophylaxis. Further recommendations depends on the clinical course of the patient DVT prophylaxis: Subcutaneous heparin. To be initiated after MRI results GI Prophylaxis: Pepcid PT/OT: Pending Prognosis is guarded
--- NOTE | 2020-10-28 08:17 | P.PN ---
Subjective Progress Note Date: 10/28/20 Principal diagnosis: L4-L5, L5-S1 spondylolisthesis Lumbar Spinal stenosis Left lower extremity radiculopathy Patient was seen at bedside this morning. Patient is lying left lateral recumbent position. Patient says her pain is under better control this morning, however, she is still having upper left leg pain as she points along the L2, L3, L4 dermatomes in the left leg. Patient denies any injuries/trauma/falls. Patient says she has not seen a neurologist in about 5 years. She normally lives in [place], but comes to [place] in the [place]. Patient denies any previous orthopedic surgical history on her back. Patient denies any chest pain, fever, shortness of breath, nausea, vomiting, change in vision. Patient denies loss of bowel/bladder control. Patient denies saddle anesthesia. Objective - Vital Signs Vital signs: Vital Signs Temp 97.8 F 10/28/20 04:28 Pulse 64 10/28/20 04:28 Resp 16 10/28/20 04:28 BP 109/65 10/28/20 04:28 Pulse Ox 97 10/28/20 04:28 Intake & Output 10/27/20 10/28/20 10/28/20 18:59 06:59 18:59 Intake Total 1000 500 Output Total 440 260 Balance 560 240 Weight 77.111 kg Intake: Intake, IV Titration 1000 500 Amount Lactated Ringers 1,000 ml 1000 500 @ 125 mls/hr IV .Q8H [facility] Rx#:[id number] Output: Post Void Residual 440 260 Other: Voiding Method Bedside Commode Bedside Commode # Voids 1 1 - Exam No significant changes from [place] exam on patient yesterday. Patient still having left lower extremity anterior leg pain. There is still some weakness on knee flexion extension in left leg - Labs CBC & Chem 7: 10/27/20 05:25 10/27/20 05:25 Labs: Abnormal Lab Results - Last 24 Hours (Table) 10/27/20 10/27/20 Range/Units 05:25 11:47 Chloride 110 H (96-109) mmol/L BUN 6.0 L (9.0-27.0) mg/dL Creatinine 0.5 L (0.6-1.5) mg/dL Glucose 133 H (70-110) mg/dL POC Glucose (mg/dL) 102 H (75-99) mg/dL Assessment and Plan Assessment: 1. L4-L5, L5-S1 spondylolisthesis 2. Lumbar spinal stenosis 3. Left lower extremity radiculopathy Plan: 1. L4-L5, L5-S1 spondylolisthesis; Lumbar spinal stenosis; Left lower extremity radiculopathy - Dr. Fung I did discuss with the patient about potential intervention. At this point surgical intervention is recommended. We did discuss the possibility of an epidural steroid injection into the lumbar spine. Patient has not had previous injections. She says she was willing to go forth with this at this time. Pain management has been consulted for evaluation and potential [place]. 2. Appreciate medical management 3. Pain management - gabapentin and Flexeril 4. GI and DVT prophylaxis per medicine 5. PT OT weightbearing as tolerated Time with Patient: Less than 30
[2020-10-28] MEDS: amLODIPine 5 MG TAB PO SCH (08:29)
[2020-10-28] MEDS: TAMSULOSIN 0.4 MG CAP.ER.24H PO SCH (08:29)
[2020-10-28] MEDS: GABAPENTIN 300 MG CAP PO SCH ×2 (08:29→20:52)
[2020-10-28] MEDS: POTAS-SOD-PHOS 278-164-250 MG 1 EACH PACKET PO SCH ×3 (08:30→21:13)
[2020-10-28] MEDS: HEPARIN SODIUM,PORCINE/PF 5,000 UNIT/0.5 ML SYRINGE SQ SCH ×2 (08:30→20:52)
--- NOTE | 2020-10-28 11:54 | P.PAINCN ---
History of Present Illness - Reason for Consult Consult date: 10/28/20 - History of Present Illness This 70-year-old female presents as an inpatient consult due to severe muscle spasms and pain in her left lower extremity. In general she lives in [place] as well as here visiting family and friends. She has a past medical history of multiple sclerosis and has been on multiple medications for this. Has not seen a neurologist in 5 years and does not take any neuropathic medications. Overall she notes that her gait is not worse over the last few months and is having to utilize a walker. She has muscle spasms in her lower extremity that is also having any worsens become unbearable to the point where she came to the emergency room today. She also notes bilateral numbness and tingling down the anterior and lateral aspects of her lower extremities (worse on the left) as well as numbness and tingling in her upper extremities in her hands and feet. difficult time with ambulation due to feeling unsteady. Orthopedic surgery did see her and do not recommend any surgical intervention at this time. MRI findings do show that there is chronic L4 5 and L5-S1 spondylolisthesis. As given an IV dose of steroids and did notice some improvement. Was started on Flexeril 10 twice a day along with gabapentin 300 twice a day. Patient also denies new-onset weakness, bowel/bladder incontinence, or any other signs or symptoms of cauda equina syndrome. There are no signs of acute intoxication, and no indications of medication diversion or overuse. In addition to above, 13-point review of systems is also negative for chest pain, shortness of breath, changes in vision, changes in hearing, new onset weakness, abdominal pain, diarrhea, extreme fatigue, malaise, fever, skin changes, homicidal or suicidal ideation, or bowel or bladder incontinence. Physical exam: Vital Signs: Reviewed in EMR GENERAL: Well appearing, in no acute distress PSYCH: Mood and affect is appropriate. Awake, alert, and oriented SKIN: Skin color, texture, turgor normal, no rashes or lesions HEENT: Normocephalic, atraumatic. EOM intact CV: No pedal edema RESP: Respirations are unlabored, no audible wheezing GI: Abdomen non-distended MUSCULOSKELETAL: 4/5 LLE with plantar flexion, dorsiflexion. 3/5 with knee extension, knee flexion, hip flexion. R side is 5/5 strength. No atrophy or tone abnormalities are noted. Neck: No pain to palpation over the cervical paraspinous muscles. Spurling negative, Axial Loading Test negative, Marti's sign negative. No pain with neck flexion, extension, or lateral flexion. No obvious deformity or signs of trauma. Normal cervical lordotic curve and normal cervical spine range of motion Lumbar spine: Straight leg raising in the sitting position is negative for radicular pain. No pain to palpation over the lumbar spine and paraspinous muscles. Negative for pain with facet loading and back extension/rotation. Normal range of motion without pain reproduction Extremities: Peripheral joint ROM is very limited on L side due to pain. . No edema or skin discolorations noted. Gait: Gait is normal NEUR: Bilateral upper and lower extremity coordination and muscle stretch reflexes are physiologic and symmetric. Negative clonus. No loss of sensation is noted. Cranial nerves are grossly intact. Imaging: Lumbar MRI L3-L4 there is a posterior central disc bulge causing mild anterior asked mass effect of the thecal sac. There is facet hypertrophy and hypertrophy ligamentum flavum causing posterior-lateral mass effect on the thecal sac. L4-L5 there is no disc herniation but some listhesis which contributes to foraminal encroachment. L5-S1 there is listhesis which causes bilateral foraminal encroachment. No disc herniation. Lateral mass effect present due to hypertrophic changes of the facets. Assessment: 1. Multiple sclerosis 2. Lumbar spondyloisthesis Plan: - At This time I'm unsure if the patient's symptoms are from her multiple sclerosis exacerbation or from significant lumbar spine pathology. The distribution of her pain is in the left L3-L4 distribution so I did discuss with her possible epidural steroid injection and the risks of this which include bleeding, nerve injury, infection, and the procedure itself not working. Patient is on chronic steroids for multiple sclerosis so she's at risk of adrenal suppression, decreased bone health, increased blood sugar, increased blood pressure with epidural steroid injection. Patient's that she would like to hold off and consider the injection. If she does want to proceed she will let the nurse know and we can schedule for monday - Procedure itself would be L3-4 ILESI I spent 50 minutes on patient care today. The time was used to review medical records including relevant urine studies and prescription history (MAPs), review of the available imaging, evaluation and examination the patient, coordination of care at the medical staff and if applicable referring physicians, as well as creation of the medical record. Past Medical History Past Medical History: Hypertension Additional Past Medical History / Comment(s): Multiple sclerosis History of Any Multi-Drug Resistant Organisms: None Reported Past Surgical History: Cholecystectomy Additional Past Surgical History / Comment(s): bladder surgery Past Anesthesia/Blood Transfusion Reactions: No Reported Reaction Past Psychological History: No Psychological Hx Reported Smoking Status: Never smoker Past Alcohol Use History: Occasional Past Drug Use History: None Reported - Past Family History Father Family Medical History: Hypertension Mother Family Medical History: No Reported History Additional Family Medical History / Comment(s): Mother was healthy. Medications and Allergies Home Medications Medication Instructions Recorded Confirmed Type Sertraline [Zoloft] 50 mg PO PC-LUNCH 10/26/20 10/26/20 History amLODIPine [Norvasc] 5 mg PO DAILY 10/26/20 10/26/20 History Allergies Allergy/AdvReac Type Severity Reaction Status Date / Time shellfish derived [Shellfish] Allergy Anaphylaxis Verified 10/26/20 06:51 Physical Exam Vitals: Vital Signs Temp Pulse Resp BP Pulse Ox 10/28/20 04:28 97.8 F 64 16 109/65 97 10/27/20 20:25 97.9 F 72 16 130/66 94 L 10/27/20 11:17 97.8 F 79 16 146/72 96 Intake and Output 10/27/20 10/28/20 10/28/20 22:59 06:59 14:59 Intake Total 500 Output Total 260 Balance 240 Intake: Intake, IV Titration 500 Amount Lactated Ringers 1,000 ml 500 @ 125 mls/hr IV .Q8H [facility] Rx#:[id number] Output: Post Void Residual 260 Other: Voiding Method Bedside Commode # Voids 1 1 1 Results CBC & Chem 7: 10/27/20 05:25 10/27/20 05:25 Labs: Abnormal Lab Results - Last 24 Hours (Table) 10/27/20 10/27/20 Range/Units 05:25 11:47 Chloride 110 H (96-109) mmol/L BUN 6.0 L (9.0-27.0) mg/dL Creatinine 0.5 L (0.6-1.5) mg/dL Glucose 133 H (70-110) mg/dL POC Glucose (mg/dL) 102 H (75-99) mg/dL PQRS Measure Charge Sheet PQRS Narrative: Blood Pressure [Right Arm] 109/65 Blood Pressure 155/89 Pain Intensity [Generalized] 6 Pain Intensity [Left Groin] 0 Pain Intensity 0 Pain Scale Used Non Verbal Pain Indicator Scale Used Numeric (1 - 10) Home Medications: Ambulatory Orders Sertraline [Zoloft] 50 mg PO PC-LUNCH 10/26/20 amLODIPine [Norvasc] 5 mg PO DAILY 10/26/20
[2020-10-28] MEDS: SERTRALINE 50 MG TAB PO SCH (11:56)
[2020-10-28] MEDS: CYCLOBENZAPRINE 10 MG TAB PO PRN (17:38)
[2020-10-29] MEDS: DEXAMETHASONE SOD PHOSPHATE 4 MG/ML 1 ML VIAL IV SCH ×4 (05:33→23:39)
[2020-10-29] MEDS: TAMSULOSIN 0.4 MG CAP.ER.24H PO SCH (08:02)
[2020-10-29] MEDS: HEPARIN SODIUM,PORCINE/PF 5,000 UNIT/0.5 ML SYRINGE SQ SCH ×2 (08:02→22:01)
[2020-10-29] MEDS: amLODIPine 5 MG TAB PO SCH (08:02)
[2020-10-29] MEDS: GABAPENTIN 300 MG CAP PO SCH ×2 (08:02→22:00)
[2020-10-29] MEDS: POTAS-SOD-PHOS 278-164-250 MG 1 EACH PACKET PO SCH ×3 (08:03→22:00)
[2020-10-29] MEDS ORDERED: SENNOSIDES 8.6 MG TAB PO PRN (08:55)
--- NOTE | 2020-10-29 11:15 | P.PN ---
Subjective Progress Note Date: 10/29/20 Principal diagnosis: L4-L5, L5-S1 spondylolisthesis Lumbar Spinal stenosis Left lower extremity radiculopathy Patient seen at bedside this morning. Patient is lying in left lateral, position. She states she has been up with physical therapy yesterday and was up and down some stairs as well as in the hallway. She says her pain is under better control, however, she still gets numbness tingling on the upper left leg in the anterior region and inguinal region. She says this pain does not bother her too much while she is lying in bed, or while walking, but this pain is worse while she is changing positions like getting up out of bed to standing position. Patient does say she is willing to go forth with [facility] tomorrow with pain management at L3 to L4. She says she has not had knee injections before. Patient denies any chest pain, fever, shortness of breath, nausea, vomiting, change in vision. Patient denies loss of bowel/bladder control. Patient denies saddle anesthesia. Objective - Vital Signs Vital signs: Vital Signs Temp 97.6 F 10/29/20 04:35 Pulse 62 10/29/20 04:35 Resp 16 10/29/20 04:35 BP 114/60 10/29/20 04:35 Pulse Ox 97 10/29/20 04:35 Intake & Output 10/28/20 10/29/20 10/29/20 18:59 06:59 18:59 Intake Total 600 1530 Output Total 334 Balance 266 1530 Intake: Oral 600 1530 Output: Post Void Residual 334 Other: Voiding Method Bedside Commode Bedside Commode Bedside Commode # Voids 1 1 1 - Exam Gen: AOx3, NAD VSS stable at this time Integument: No open lesions or sores are visualized throughout the cervical, thoracic, lumbar region. There is no open lesions or sores present about the left lower extremity. Palpation: Patient is nontender with palpation throughout the cervical, thoracic or lumbar region including the midline or paraspinal. She is nontender with palpation throughout the left lower extremity ROM: Full range of motion in all major muscle groups of the bilateral upper extremities Full range of motion in all major muscle groups of the right lower extremity, left lower extremity range of motion is limited with hip flexion along with knee flexion and knee extension due to pain. Plantar flexion, dorsiflexion, EHL, FHL are intact Sensory Exam: Senory exam to light touch is intact C5-T1 Senosry exam to light touch is intact L2-S1 Motor: 5 out of 5 strength is appreciated in the bilateral upper extremities with shoulder abduction, forward elevation, elbow extension, elbow flexion, wrist extension, wrist flexion, intrinsics 5 out of 5 strength is appreciated in the right lower extremity with hip flexion, knee extension, knee flexion, plantar flexion, dorsiflexion, EHL, FHL. 4 out of 5 strength is appreciated in the left lower extremity with plantar flexion, dorsiflexion, EHL, FHL. 3 out of 5 strength is appreciated with knee extension, knee flexion, hip flexion. Special tests: Negative Obey's, negative Babinski, negative clonus bilaterally More specific exam of the left lower extremity demonstrates no point tenderness with palpation surrounding the foot or ankle, knee, hip, greater trochanteric region. Passive range of motion is very difficult due to the severe stiffness, mainly with internal and external rotation along with flexion of the hip. - Labs CBC & Chem 7: 10/27/20 05:25 10/27/20 05:25 Assessment and Plan Assessment: 1. L4-L5, L5-S1 spondylolisthesis 2. Lumbar spinal stenosis 3. Left lower extremity radiculopathy Plan: 1. L4-L5, L5-S1 spondylolisthesis; Lumbar spinal stenosis; Left lower extremity radiculopathy - Dr. Fung I did discuss with the patient about potential intervention. At this point surgical intervention is not recommended. We did discuss the possibility of an epidural steroid injection into the lumbar spine. Patient has not had previous injections. She says she was willing to go forth with this at this time. Patient will have [facility] tomorrow for L3 to L4. We'll continue to follow patient while in hospital 2. Appreciate medical management 3. Pain management - gabapentin and Flexeril 4. GI and DVT prophylaxis - Docusate and Colace 5. PT/OT weightbearing as tolerated
--- NOTE | 2020-10-29 12:21 | P.PN ---
Subjective Progress Note Date: 10/29/20 The patient is in the hospital with back and leg pain. She has advanced multiple sclerosis. The cause of the pain may not be multiple sclerosis. She has incomplete bladder emptying and staccato type voiding which is quite typical of MS. She is emptying adequately. We did discuss catheterization, inte rmittent catheterization. At this point in time we will not do this. She should be seen in the office in follow up with me. Objective - Vital Signs Vital signs: Vital Signs Temp 97.9 F 10/29/20 11:59 Pulse 75 10/29/20 11:59 Resp 17 10/29/20 11:59 BP 144/74 10/29/20 11:59 Pulse Ox 94 L 10/29/20 11:59 Intake & Output 10/28/20 10/29/20 10/29/20 18:59 06:59 18:59 Intake Total 600 1530 Output Total 334 Balance 266 1530 Intake: Oral 600 1530 Output: Post Void Residual 334 Other: Voiding Method Bedside Commode Bedside Commode Bedside Commode # Voids 1 1 1 - Labs CBC & Chem 7: 10/27/20 05:25 10/27/20 05:25
[2020-10-29] MEDS: SERTRALINE 50 MG TAB PO SCH (13:38)
--- NOTE | 2020-10-29 14:35 | P.PN ---
Subjective This is a pleasant 70 years old female with past medical history of multiple sclerosis and hypertension. She is from [place] and visiting [place] from August to January. Her PCP at [place] is Dr. Harris (not sure of spelling !!) Patient presents because of muscle spasm in the left lower extremity. Her left leg becomes has been going on for the last month, she cannot sleep tenderness in certain ways because of her leg pain. Last night. Left leg pain was significantly worse so she decided to come to emergency room. She rates her pain at 8/10. Also patient could not walk yesterday. States that she has weakness in her left leg also for years but got worse lately and yesterday she hardly couldn't walk. Currently she has difficulty extending her knee and flex and hurt her left hip. Else patient denies headache but she has some dizziness that time and she felt few weeks ago. She also has some pain in her left hip with tenderness She states that she has chronic low back pain that securely get worse, this year it was the worst, she rates her back pain as 5/10. And try to get into the left side Patient denies any abdominal pain, no nausea vomiting, no change in bowel habits Patient says that she has chronic hesitancy with urination for years, she has to wait 10 minutes before urination/initiation. Patient states that she's been diagnosed with an normal hiatal about 25 years ago for numbness in both feet and fingers/hand, and that time it partially improved with prednisone. The symptoms are chronic with no recent worsening. Follow-up with the neurologist She denies smoking, alcohol or illicit drugs Vitas looks stable, patient is afebrile, there is slightly elevated at 146/73. CBC and BMP and liver enzymes are unremarkable except for low phosphorus at 1.5. C-reactive protein is normal at 0.6. Coronary first not detected D-dimer is 0.78. Doppler of the left lower extremity is negative for DVT Left femoral x-ray: chondrocalcinosis in the left knee joint. No evidence of hip fracture In the emergency room patient given Valium 5 mg and 1 L of normal saline. 10/27/2020 Patient today stating sick improvement but partial in her left leg spasm, pain and weakness." Whatever you do it is helping me" Patient's MRI showing chronic changes with no significant spinal stenosis. Patient has L4-L5 grade 1 spondylolisthesis, L5-S1 grade 2 spondylolisthesis, Multilevel lumbar spine spondylosis. Also left knee x-ray shows severe osteoarthritis. Orthopedic team recommended physical therapy and follow-up outpatient for possible surgical management discussion with the patient. Patient with chronic urinary retention, urologist think it's neurogenic bladder related to MS We will consult neurology service for possible M multiple sclerosis flareup. Continue with dexamethasone for now. Discontinue Ringer lactate. Continue with Attempting and flexor 10/28/2020 Patient still complains from some weakness and tenderness in the left upper lateral thigh. Although she reports also little improvement compared to yesterday. Patient also with neurogenic bladder. Secondary to MS. No need for Molina catheter per Dr. Marquez. Vitals stable. Labs from yesterday showing no change and stable. Urine analysis negative. Gabapentin and flexor are added yesterday with little help. IV fluids stopped. Patient remains on dexamethasone 4 mg We will call neurology consult today 10/29/2020 Patient is still getting pain and spasm in her left leg with some weakness. Patient is planned to go for epidural steroid injection tomorrow at couple of L3 to L4 secondary to her severe lumbar spinal stenosis with radiculopathy to her left leg. Discussed management plan with the patient and she is agreeable. Hemodynamically stable. Continue with pain management with morphine. Also she is on gabapentin and Flexeril. Hold heparin tonight for tomorrow spinal inj Objective - Vital Signs Vital signs: Vital Signs Temp 97.9 F 10/29/20 11:59 Pulse 75 10/29/20 11:59 Resp 17 10/29/20 11:59 BP 144/74 10/29/20 11:59 Pulse Ox 94 L 10/29/20 11:59 Intake & Output 10/28/20 10/29/20 10/29/20 18:59 06:59 18:59 Intake Total 600 1530 Output Total 334 Balance 266 1530 Intake: Oral 600 1530 Output: Post Void Residual 334 Other: Voiding Method Bedside Commode Bedside Commode Bedside Commode # Voids 1 1 1 # Bowel Movements 1 - Exam GENERAL: The patient is alert and oriented x3, not in any acute distress. Well developed, well nourished. HEENT: Pupils are round and equally reacting to light. EOMI. No scleral icterus. No conjunctival pallor. Normocephalic, atraumatic. No pharyngeal erythema. No thyromegaly. CARDIOVASCULAR: S1 and S2 present. No murmurs, rubs, or gallops. PULMONARY: Chest is clear to auscultation, no wheezing or crackles. ABDOMEN: Soft, nontender, nondistended, normoactive bowel sounds. No palpable organomegaly. -MUSCULOSKELETAL: No joint swelling or deformity. Upper lateral tenderness of the left thigh. Mild with no deformity or rash EXTREMITIES: No cyanosis, clubbing, or pedal edema. -NEUROLOGICAL: Cranial nerves are grossly intact . Limited extension of the left knee and flexion of the left hip. Strength in upper extremities are 5/5, . Patient is intact. No signs are absent SKIN: No rashes. No petechiae - Labs CBC & Chem 7: 10/27/20 05:25 10/27/20 05:25 Assessment and Plan Assessment: progressive Left leg weakness and pain over the last month . Secondary to lumbar spinal stenosis L3-L4 Neurogenic bladder, could be related to her multiple sclerosis. Dr. Marquez evaluated the patient and recommended outpatient follow-up Multiple sclerosis with chronic numbness of feet and hands as per patient. Chronic back pain with 4-L5 grade 1 spondylolisthesis, L5-S1 grade 2 spondylolisthesis Severe left knee osteoarthritis Difficulty walking secondary to above hypophosphatemia, improved Chronic urinary hesitancy Essential hypertension Plan: This is a pleasant 70 years old female presents with left spasm and low phosphorus. Muscle relaxants. Consult orthopedic team. Continue with dexamethasone. Several consults on the case including orthopedic, urologist. Neurology consult team was contacted and recommended to refer the patient for outpatient for her MS labs and medication were reviewed.. Continue same treatment. Continue with symptomatic treatment. Resume home medication. Monitor lytes and vitals. DVT and GI prophylaxis. Further recommendations depends on the clinical course of the patient DVT prophylaxis: Subcutaneous heparin. To be held from tonight GI Prophylaxis: Pepcid PT/OT: Recommended home health care Prognosis is guarded
[2020-10-29] MEDS: DOCUSATE 100 MG CAP PO PRN (15:59)
[2020-10-30] MEDS: DEXAMETHASONE SOD PHOSPHATE 4 MG/ML 1 ML VIAL IV SCH ×4 (06:06→23:21)
[2020-10-30] MEDS: GABAPENTIN 300 MG CAP PO SCH ×2 (07:52→21:04)
[2020-10-30] MEDS: TAMSULOSIN 0.4 MG CAP.ER.24H PO SCH (07:52)
[2020-10-30] MEDS: POTAS-SOD-PHOS 278-164-250 MG 1 EACH PACKET PO SCH ×3 (07:53→21:04)
[2020-10-30] MEDS: amLODIPine 5 MG TAB PO SCH (07:53)
[2020-10-30] MEDS ORDERED: LACTATED RINGERS 1,000 ML IV ONE (10:14)
[2020-10-30] MEDS ORDERED: methylPREDNISolone ACETATE 40 MG/ML 1 ML VIAL ONE (10:16)
--- NOTE | 2020-10-30 10:33 | P.PCN ---
Date of Procedure: 10/30/20 Procedure(s) Performed: PREOPERATIVE DIAGNOSIS: 1- Lumbar Degenerative Disc Diseases 2-Lumbar spondylosis with Facet arthropathy without myelopathy 3-lumbar radiculopathy. 4-multiple sclerosis POSTOPERATIVE DIAGNOSIS: Same as preop diagnosis. PROCEDURE 1. Lumbar epidural steroid injection under fluoroscopic guidance at the L3-4 level. (Fluoroscopy imaging was available in radiology department) ANESTHESIA: Local with 1% lidocaine 3 ml only . EBL: Minimal PROCEDURE INDICATION: The patient with low back pain and radiculitis symptoms unresponsive to conservative treatment. Fluoroscopy was used to optimize visualization of the needle placement and to maximize safety. PROCEDURE DESCRIPTION / TECHNIQUE: The patient was seen and identified in the preoperative area. Risks, benefits, complications including but not limited to infections ,bleeding ,allergic reaction to the medications ,nerve damage and not complete pain releife , and alternatives were discussed with the patient. The patient agreed to proceed with the procedure and signed the consent. IV was started, and vital signs were stable. Patient was taken to the OR and time out was completed. The patient was placed in the prone position on procedure table and a pillow was placed under the abdomen to reduce lumbar lordosis. The lumbosacral area was prepped and draped in the usual sterile fashion.ere closely monitored during the procedure. Conscious sedation was used during the procedure to decrease patients anxiety. Vital signs was monitered during the entire procedure. Using anterior-posterior fluoroscopy, the L3-4 interlaminar space was identified and the skin over this site was marked and then infiltrated with 1% lidocaine subcutaneously. Subsequently, a 20-gauge Tuohy epidural needle was inserted ( left paramedial ) and advanced toward the epidural space using the ``Loss of resistance technique and guided by AP and lateral fluoroscopy.(Isovue was not injected because patient had an ALLERGY to shellfish ), after negative aspiration for blood and CSF and in the absence of paresthesias. Again after negative aspiration, a 4 ml mixture containing 80 mg of Depo-medrol , and 2 ml of preservative free Normal Saline and 2 ml of PF lidocaine 1 % injected after negative aspiration then ,. Needle was withdrawn intact, skin was cleansed, and bandages were applied. COMPLICATIONS: None DISPOSITION / PLANS: The patient was placed in a supine position and transferred to the recovery area in a stable condition for observation. There was no evidence of lower extremity motor or sensory deficit after the procedure. Patient was discharged from the recovery room after meeting discharge criteria. Home discharge instructions were given to the patient by the staff. The patient was reexamined prior to discharge. The patient will schedule a follow up in the clinic in 2-4 weeks.
--- NOTE | 2020-10-30 11:02 | FL ---
Fluoroscopy INDICATION: Pain FINDINGS: Fluoroscopy time: 16 seconds. Images obtained: 1. IMPRESSIONS: 1. Documentation of fluoroscopy.
[2020-10-30] MEDS: SERTRALINE 50 MG TAB PO SCH (12:04)
[2020-10-30] MEDS: CYCLOBENZAPRINE 10 MG TAB PO PRN (12:04)
[2020-10-30] MEDS: DOCUSATE 100 MG CAP PO PRN ×2 (12:04→21:04)
--- NOTE | 2020-10-30 21:29 | P.PN ---
Subjective This is a pleasant 70 years old female with past medical history of multiple sclerosis and hypertension. She is from [place] and visiting [place] from August to January. Her PCP at [place] is Dr. Harris (not sure of spelling !!) Patient presents because of muscle spasm in the left lower extremity. Her left leg becomes has been going on for the last month, she cannot sleep tenderness in certain ways because of her leg pain. Last night. Left leg pain was significantly worse so she decided to come to emergency room. She rates her pain at 8/10. Also patient could not walk yesterday. States that she has weakness in her left leg also for years but got worse lately and yesterday she hardly couldn't walk. Currently she has difficulty extending her knee and flex and hurt her left hip. Else patient denies headache but she has some dizziness that time and she felt few weeks ago. She also has some pain in her left hip with tenderness She states that she has chronic low back pain that securely get worse, this year it was the worst, she rates her back pain as 5/10. And try to get into the left side Patient denies any abdominal pain, no nausea vomiting, no change in bowel habits Patient says that she has chronic hesitancy with urination for years, she has to wait 10 minutes before urination/initiation. Patient states that she's been diagnosed with an normal hiatal about 25 years ago for numbness in both feet and fingers/hand, and that time it partially improved with prednisone. The symptoms are chronic with no recent worsening. Follow-up with the neurologist She denies smoking, alcohol or illicit drugs Vitas looks stable, patient is afebrile, there is slightly elevated at 146/73. CBC and BMP and liver enzymes are unremarkable except for low phosphorus at 1.5. C-reactive protein is normal at 0.6. Coronary first not detected D-dimer is 0.78. Doppler of the left lower extremity is negative for DVT Left femoral x-ray: chondrocalcinosis in the left knee joint. No evidence of hip fracture In the emergency room patient given Valium 5 mg and 1 L of normal saline. 10/27/2020 Patient today stating sick improvement but partial in her left leg spasm, pain and weakness." Whatever you do it is helping me" Patient's MRI showing chronic changes with no significant spinal stenosis. Patient has L4-L5 grade 1 spondylolisthesis, L5-S1 grade 2 spondylolisthesis, Multilevel lumbar spine spondylosis. Also left knee x-ray shows severe osteoarthritis. Orthopedic team recommended physical therapy and follow-up outpatient for possible surgical management discussion with the patient. Patient with chronic urinary retention, urologist think it's neurogenic bladder related to MS We will consult neurology service for possible M multiple sclerosis flareup. Continue with dexamethasone for now. Discontinue Ringer lactate. Continue with Attempting and flexor 10/28/2020 Patient still complains from some weakness and tenderness in the left upper lateral thigh. Although she reports also little improvement compared to yesterday. Patient also with neurogenic bladder. Secondary to MS. No need for Molina catheter per Dr. Marquez. Vitals stable. Labs from yesterday showing no change and stable. Urine analysis negative. Gabapentin and flexor are added yesterday with little help. IV fluids stopped. Patient remains on dexamethasone 4 mg We will call neurology consult today 10/29/2020 Patient is still getting pain and spasm in her left leg with some weakness. Patient is planned to go for epidural steroid injection tomorrow at couple of L3 to L4 secondary to her severe lumbar spinal stenosis with radiculopathy to her left leg. Discussed management plan with the patient and she is agreeable. Hemodynamically stable. Continue with pain management with morphine. Also she is on gabapentin and Flexeril. Hold heparin tonight for tomorrow spinal inj 10/30/2020 Patient is status post epidural steroid injection at lumbar L3 to L4 today. He tolerated the procedure well, after the procedure patient is still complaining from pain in her left thigh anteriorly especially when she tried to flex the hip. Other pains around the area is improved. Patient thinks she is improving. She is also on Decadron IV. Most likely we will taper Decadron upon discharge Patient was informed that she needs to repeat the procedures in 2-3 weeks and she agrees with this recommendation. Urologist. The patient for discharge as an outpatient Neurologist has been consulted for her MS, however on reviewing the chart and r ecommended referral as an outpatient. Possible discharge in 24-48 hours Objective - Vital Signs Vital signs: Vital Signs Temp 98.0 F 10/30/20 19:34 Pulse 85 10/30/20 19:34 Resp 16 10/30/20 19:34 BP 130/69 10/30/20 19:34 Pulse Ox 96 10/30/20 19:34 Intake & Output 10/30/20 10/30/20 10/31/20 06:59 18:59 06:59 Intake Total 970 Balance 970 Intake: IV 50 Oral 920 Other: Voiding Method Bedside Commode Bedside Commode # Voids 1 - Exam GENERAL: The patient is alert and oriented x3, not in any acute distress. Well developed, well nourished. HEENT: Pupils are round and equally reacting to light. EOMI. No scleral icterus. No conjunctival pallor. Normocephalic, atraumatic. No pharyngeal erythema. No thyromegaly. CARDIOVASCULAR: S1 and S2 present. No murmurs, rubs, or gallops. PULMONARY: Chest is clear to auscultation, no wheezing or crackles. ABDOMEN: Soft, nontender, nondistended, normoactive bowel sounds. No palpable or ganomegaly. -MUSCULOSKELETAL: No joint swelling or deformity. Upper lateral tenderness of the left thigh. Mild with no deformity or rash EXTREMITIES: No cyanosis, clubbing, or pedal edema. -NEUROLOGICAL: Cranial nerves are grossly intact . Limited extension of the left knee and flexion of the left hip. Strength in upper extremities are 5/5, . Patient is intact. No signs are absent SKIN: No rashes. No petechiae - Labs CBC & Chem 7: 10/27/20 05:25 10/27/20 05:25 Assessment and Plan Assessment: progressive Left leg weakness and pain over the last month . Secondary to lumbar spinal stenosis L3-L4. Status post epidural steroid injection to L3 to L4 Neurogenic bladder, could be related to her multiple sclerosis. Dr. Marquez evaluated the patient and recommended outpatient follow-up. No Molina needed Multiple sclerosis with chronic numbness of feet and hands as per patient. Chronic back pain with 4-L5 grade 1 spondylolisthesis, L5-S1 grade 2 spondylolisthesis Severe left knee osteoarthritis Difficulty walking secondary to above hypophosphatemia, improved Chronic urinary hesitancy Essential hypertension Plan: This is a pleasant 70 years old female presents with left spasm and low phosphorus. Muscle relaxants. Consult orthopedic team. Continue with dexame thasone. Several consults on the case including orthopedic, urologist. Neurology consult team was contacted and recommended to refer the patient for outpatient for her MS repeat epidural steroid injection in 2-3 weeks Follow-up as an outpatient labs and medication were reviewed.. Continue same treatment. Continue with symptomatic treatment. Resume home medication. Monitor lytes and vitals. DVT and GI prophylaxis. Further recommendations depends on the clinical course of the patient DVT prophylaxis: Subcutaneous heparin. To be held from tonight GI Prophylaxis: Pepcid PT/OT: Recommended home health care, I discussed the case with our case work aide Ion, due to the patient is from [place] with no PCP then home health care could not be setup Prognosis is guarded Possible discharge in 24-48 hours
[2020-10-31 04:36] VITALS: TEMP 97.6
[2020-10-31 04:48] LABS: African American GFR (CKD) >90 (>60 ml/min/1.73 sqM); Anion Gap 4 mmol/L; Blood Urea Nitrogen 15 mg/dL (7-17); Calcium 9.1 mg/dL (8.4-10.2); Carbon Dioxide 29 mmol/L (22-30); Chloride 105 mmol/L (98-107); Glucose 132 mg/dL (74-99); Magnesium 2.2 mg/dL (1.6-2.3); Non-African American GFR(CKD) >90 (>60 ml/min/1.73 sqM); Phosphorus 3.8 mg/dL (2.5-4.5); Potassium 4.1 mmol/L (3.5-5.1); Sodium 138 mmol/L (137-145)
[2020-10-31] MEDS: DEXAMETHASONE SOD PHOSPHATE 4 MG/ML 1 ML VIAL IV SCH ×2 (06:05→12:21)
[2020-10-31] MEDS: POTAS-SOD-PHOS 278-164-250 MG 1 EACH PACKET PO SCH (08:53)
[2020-10-31] MEDS: amLODIPine 5 MG TAB PO SCH (08:53)
[2020-10-31] MEDS: GABAPENTIN 300 MG CAP PO SCH (08:53)
[2020-10-31] MEDS: TAMSULOSIN 0.4 MG CAP.ER.24H PO SCH (08:53)
[2020-10-31] MEDS ORDERED: HYDROcodone/APAP 5-325MG 1 EACH TAB PO STA (09:39)
--- NOTE | 2020-10-31 11:13 | P.PN ---
Subjective Progress Note Date: 10/31/20 Principal diagnosis: L4 5 and L5-S1 spondylolisthesis Neurogenic claudication Patient seen and examined this morning she did have her CLINTON yesterday. She states she thinks she feels a little bit better but is still having pain down her left leg. She states still some weakness in her left leg. I did not evaluate the patient with physical therapy in the room who stated that she did do stairs today however she was weaker on that one side and is difficult for her to maintain balance. When talking with the patient more I find out that she is fairly deconditioned additionally spends to 3 hours out of bed a day because of how debilitated she is from her back. She states that over time she is becoming weaker in her legs and more so crampy and exercise intolerant and landing to the diagnosis of neurogenic claudication. The difficult part is that she lives in [place] for most of the time his only appear during the summer and all her insurance and doctors are in [place] and so she is not really wanting to explore or start things appear that she can finish which I completely understand. With her today and we spoke extensively about the treatment options for her. Due to her debilitating status and somewhat progressive nature of her neurogenic claudication to the point where she can only wash dishes and that she has to go back to better make one medial and go back to bed I do think that at some point she is going to need fairly extensive surgical intervention in the form of a likely fusion and decompression from L4 to S1. Her the best possible chance of recovery however this is a large undertaking and may not be something that she wants to do while she is up here in [place] for this short period. She will probably follow up with me while she is here and we can attempt to get her a second injection of her back to try and help symptomatically with her issues until she is able to return to [place] and speak with a orthopedic spine surgeon in this area. They were comfortable with this and appreciative of the explanation today. From an orthopedic standpoint she is stable and can discharge home with home medications anti-inflammatories Medrol Dosepak Flexeril gabapentin and symptomatic treatments. We would have her follow up in the office in the next 1-2 weeks and we can discuss another injection for her to somewhat temporize her situation and they were comfortable with this. Her exam today is relatively benign she developed still has good strength in dorsiflexion and plantarflexion EHL and FHL bilaterally she has good knee extension and flexion bilaterally she also has 4+ out of 5 strength in bilateral hip flexion however this is a weaker point for her. She has intact sensation but she has lateral radiculopathy down the left leg she has tensioning signs in the left leg as well straight leg raise and seated straight leg raise. She has no tenderness to palpation in her back lumbar thoracic or cervical. She is intact with no long track signs or pathologic reflexes at this time either. We will follow her up in outpatient setting if they so desire. Objective - Vital Signs Vital signs: Vital Signs Temp 97.6 F 10/31/20 04:35 Pulse 64 10/31/20 04:35 Resp 16 10/31/20 04:35 BP 127/62 10/31/20 04:35 Pulse Ox 96 10/31/20 04:35 Intake & Output 10/30/20 10/31/20 10/31/20 18:59 06:59 18:59 Intake Total 970 540 Balance 970 540 Intake: IV 50 Oral 920 540 Other: Voiding Method Bedside Commode Toilet Bedside Commode # Voids 1 2 - Labs CBC & Chem 7: 10/27/20 05:25 10/31/20 03:52 Labs: Abnormal Lab Results - Last 24 Hours (Table) 10/31/20 Range/Units 03:52 Creatinine 0.48 L (0.52-1.04) mg/dL Glucose 132 H (74-99) mg/dL Assessment and Plan Time with Patient: Greater than 30
[2020-10-31] MEDS: SERTRALINE 50 MG TAB PO SCH (13:08)
[2020-10-31 14:05] VITALS: BP 138/78; PULSE 65; RESP 18
[2020-10-31] MEDS ORDERED: HYDROcodone/APAP 5-325MG 1 EACH TAB PO PRN (14:41)
--- NOTE | 2020-11-01 00:49 | P.DS ---
Providers Date of admission: 10/27/20 16:59 Attending physician: Karin Neff Consults: 10/27/20 11:12 Consult Physician Routine Consulting Provider: Jason David Consult Reason/Comments: urinary retention/M.S Do you want consulting provider notified?: Yes 10/27/20 12:10 Consult Physician Routine Consulting Provider: Tyrone Fung Consult Reason/Comments: leg pain Do you want consulting provider notified?: Yes 10/28/20 08:03 Consult Physician Routine Consulting Provider: Valerio Johnson Consult Reason/Comments: Lumbar Radiculopathy; left upper leg pain, possible CLINTON Do you want consulting provider notified?: Yes Primary care physician: Physician Nonstaff Hospital Course: Diagnoses: progressive Left leg weakness and pain over the last month . Secondary to lumbar spinal stenosis L3-L4. Status post epidural steroid injection to L3 to L4 Chronic Neurogenic bladder, could be related to her multiple sclerosis. Dr. Marquez evaluated the patient and recommended outpatient follow-up. No Molina needed Multiple sclerosis with chronic numbness of feet and hands as per patient. She follows up in [place] with her doctor Chronic back pain with 4-L5 grade 1 spondylolisthesis, L5-S1 grade 2 spondylolisthesis Severe left knee osteoarthritis Difficulty walking secondary to above hypophosphatemia, improved Chronic urinary hesitancy Essential hypertension Hospital course: This is a pleasant 70 years old female with past medical history of multiple sclerosis and hypertension. She is from [place] and visiting [place] from August to January. Her PCP at [place] is Dr. Harris (not sure of spelling !!) Patient presents because of muscle spasm in the left lower extremity, associated with mild weakness. Lumbar spine MRI showing chronic changes with no significant spinal stenosis. P atient has L4-L5 grade 1 spondylolisthesis, L5-S1 grade 2 spondylolisthesis, Multilevel lumbar spine spondylosis. Also left knee x-ray shows severe osteoarthritis. Patient has been evaluated by orthopedic surgeon Dr. Fung who recommended epidural steroid injection at L3-L4 which is done today, patient tolerated the procedure well stating she started improving gradually after the procedure patient received 1 dose of Mary Esther 5-325 mg and help with her pain even more as well as walking. Patient asked prescription of Mary Esther upon discharge to help her to better deal with pain. 5 days supply provided for the patient. Risks/benefits are explained for the patient including but not limited to the risk of respiratory depression and/or with using narcotics and she agrees. Also she knows about the risk of addiction Other than that she denies any other acute symptoms. Patient was cleared for discharge by all services including orthopedic team, patient management team and urologist Problems and management plan were discussed with the patient and he verbalized understanding and acceptance Patient was found stable and can be discharged home however he needs follow-up as an outpatient. Patient was instructed to follow up with PCP in [place] within one week and patient agrees Also patient was instructed to follow-up with the surgeon in 2 weeks and she agrees as well. On to follow-up with the pain clinic as well. Also instructed to follow up with Dr. Marquez, and to call and make sooner appointment and she agrees with these recommendations Physical exam Gen: patient is a AAOx3, no distress CVS: S1-S2, RRR, no murmur Lungs: B/L CTA, no wheezing Abdomen: soft, no distention, no tenderness, positive bowel sounds Extremity: no leg edema or induration. -Neuro: Cranial nerves are grossly intact. Pain anteriorly with left thigh flexion, mild weakness of the left lower extremity. Right lower extremity and upper extremities strength 5/5. Sensation is intact Time spent more than 35 minutes Patient Condition at Discharge: Fair Plan - Discharge Summary Discharge Rx Participant: No New Discharge Prescriptions: New Calcium Carbonate/Vitamin D3 [Calcium 500 mg-Vit D3 5 mcg (200 Unit)] 1 each PO BID 30 Days #60 tablet RX: Docusate [Colace] 100 mg PO BID PRN #40 cap PRN Reason: Constipation RX: Cyclobenzaprine [Flexeril] 10 mg PO BID PRN #60 tab PRN Reason: Muscle Spasm RX: Gabapentin [Neurontin] 300 mg PO BID #60 cap Acetaminophen Tab [Tylenol] 325 mg PO Q6H #90 tab HYDROcodone/APAP 5-325MG [Mary Esther 5-325] 1 tab PO Q6HR PRN 5 Days #20 tab PRN Reason: Severe Pain dexAMETHasone [Dexamethasone] 4 mg PO DIRECTED #20 tablet RX: Tamsulosin [Flomax] 0.4 mg PO PC-BRKFST #30 cap.er.24h Famotidine [Pepcid] 20 mg PO BID #60 tablet Continue RX: amLODIPine [Norvasc] 5 mg PO DAILY RX: Sertraline [Zoloft] 50 mg PO PC-LUNCH Discharge Medication List RX: Sertraline [Zoloft] 50 mg PO PC-LUNCH 10/26/20 [History] RX: amLODIPine [Norvasc] 5 mg PO DAILY 10/26/20 [History] Acetaminophen Tab [Tylenol] 325 mg PO Q6H #90 tab 10/31/20 [Rx] Calcium Carbonate/Vitamin D3 [Calcium 500 mg-Vit D3 5 mcg (200 Unit)] 1 each PO BID 30 Days #60 tablet 10/31/20 [Rx] Famotidine [Pepcid] 20 mg PO BID #60 tablet 10/31/20 [Rx] HYDROcodone/APAP 5-325MG [Mary Esther 5-325] 1 tab PO Q6HR PRN 5 Days #20 tab 10/31/20 [Rx] RX: Cyclobenzaprine [Flexeril] 10 mg PO BID PRN #60 tab 10/31/20 [Rx] RX: Docusate [Colace] 100 mg PO BID PRN #40 cap 10/31/20 [Rx] RX: Gabapentin [Neurontin] 300 mg PO BID #60 cap 10/31/20 [Rx] RX: Tamsulosin [Flomax] 0.4 mg PO PC-BRKFST #30 cap.er.24h 10/31/20 [Rx] dexAMETHasone [Dexamethasone] 4 mg PO DIRECTED #20 tablet 10/31/20 [Rx] Follow up Appointment(s)/Referral(s): [facility] [NON-STAFF] - 1 Week None,Stated [REFERRING] - 1-2 days Tyrone Fung DO [Doctor of Osteopathic Medicine] - 11/13/20 11:50 am (Please arrive at 11:30 to fill out paper work.) Jason David MD [STAFF PHYSICIAN] - 12/25/20 10:40 am Patient Instructions/Handouts: Muscle Spasm (ED) Discharge/Stand Alone Forms: Anes Pain/[facility] Instructions Discharge Disposition: HOME SELF-CARE
== END 2020-10-31 16:00 | disposition home or self-care (01) | DRG 552 ==
LOC: EC 23:12 → 6NMEDSUR 10-26 01:42 → 5NMEDONC 10-26 08:48 → OBSVTOIN 10-27 16:59
PROVIDERS: ADMIT Hospitalist; ATTEND Hospitalist
PROC: 3E0R33Z Introduction of Anti-inflammatory into Spinal Canal, Percutaneous Approach (ICD-10-PCS; principal; 2020-10-30 11:45)
DX: M48.061 Spinal stenosis, lumbar region without neurogenic claudication (principal); G35 Multiple sclerosis; I10 Essential (primary) hypertension; E83.39 Other disorders of phosphorus metabolism; G89.29 Other chronic pain; M43.16 Spondylolisthesis, lumbar region; M43.17 Spondylolisthesis, lumbosacral region; M17.12 Unilateral primary osteoarthritis, left knee; M25.762 Osteophyte, left knee; Z20.822 Contact with and (suspected) exposure to COVID-19; M16.12 Unilateral primary osteoarthritis, left hip; M47.26 Other spondylosis with radiculopathy, lumbar region; M51.16 Intervertebral disc disorders with radiculopathy, lumbar region; N31.9 Neuromuscular dysfunction of bladder, unspecified; Z79.899 Other long term (current) drug therapy; Z82.49 Family history of ischemic heart disease and other diseases of the circulatory system; N36.44 Muscular disorders of urethra; M54.5 Low back pain
CPT/HCPCS: 36415; 62323; 72148; 73502; 80048; 80053; 81003; 83735; 84100; 85025; 85379; 86140; 87635; 96361; 96374; 99285

== ENCOUNTER 2020-11-18 12:13 | Inpatient (IN) | payer MEDICARE ==
--- NOTE | 2020-11-18 13:04 | ED ---
Extremity Problem HPI - General Source: patient, family, RN notes reviewed Mode of arrival: wheelchair Limitations: no limitations <Arthur Choi - Last Filed: 11/18/20 13:01> <Diego Hernandez - Last Filed: 11/18/20 17:49> - General Chief complaint: Extremity Problem,Nontraumatic Stated complaint: revisit - lt leg swelling/pain Time Seen by Provider: 11/18/20 12:35 - History of Present Illness Initial comments: This a 70-year-old female presents emergency department with chief complaint of left leg pain and swelling. Patient states has progressively gotten worse. Patient did have a recent hospitalization for leg spasms but states that her leg is swollen. Patient states she feels her heart racing occasionally feels like it's hard to get a deep breath in. Patient has no history of PE or DVT. No fevers or chills no trauma to her leg. Patient states she does not take any blood thinners. (Arthur Choi) - Related Data Home Medications Medication Instructions Recorded Confirmed Sertraline [Zoloft] 50 mg PO DAILY 10/26/20 11/18/20 amLODIPine [Norvasc] 5 mg PO DAILY 10/26/20 11/18/20 Previous Rx's Medication Instructions Recorded Cyclobenzaprine [Flexeril] 10 mg PO BID PRN #60 tab 10/31/20 Docusate [Colace] 100 mg PO BID PRN #40 cap 10/31/20 Famotidine [Pepcid] 20 mg PO BID #60 tablet 10/31/20 Gabapentin [Neurontin] 300 mg PO BID #60 cap 10/31/20 HYDROcodone/APAP 5-325MG [[place] 1 tab PO Q6HR PRN 5 Days #20 tab 10/31/20 5-325] Tamsulosin [Flomax] 0.4 mg PO PC-BRKFST #30 cap.er.24h 10/31/20 Allergies Allergy/AdvReac Type Severity Reaction Status Date / Time shellfish derived [Shellfish] Allergy Anaphylaxis Verified 11/18/20 16:43 Review of Systems ROS Other: All systems not noted in ROS Statement are negative. <Arthur Choi - Last Filed: 11/18/20 13:01> ROS Other: All systems not noted in ROS Statement are negative. <Diego Hernandez - Last Filed: 11/18/20 17:49> ROS Statement: Those systems with pertinent positive or pertinent negative responses have been documented in the HPI. Past Medical History Past Medical History: Hypertension Additional Past Medical History / Comment(s): Multiple sclerosis History of Any Multi-Drug Resistant Organisms: None Reported Past Surgical History: Cholecystectomy Additional Past Surgical History / Comment(s): bladder surgery Past Anesthesia/Blood Transfusion Reactions: No Reported Reaction Past Psychological History: No Psychological Hx Reported Smoking Status: Never smoker Past Alcohol Use History: Occasional Past Drug Use History: None Reported - Past Family History Father Family Medical History: Hypertension Mother Family Medical History: No Reported History Additional Family Medical History / Comment(s): Mother was healthy. <Arthur Choi - Last Filed: 11/18/20 13:01> General Exam Limitations: no limitations General appearance: alert, in no apparent distress Head exam: Present: atraumatic, normocephalic, normal inspection Respiratory exam: Present: normal lung sounds bilaterally. Absent: respiratory distress, wheezes, rales, rhonchi, stridor Cardiovascular Exam: Present: normal rhythm, tachycardia, normal heart sounds. Absent: systolic murmur, diastolic murmur, rubs, gallop, clicks GI/Abdominal exam: Present: soft, normal bowel sounds. Absent: distended, tenderness, guarding, rebound, rigid Extremities exam: Present: other (Extremities pulses equal bilaterally left leg is significant swollen, discolored) Neurological exam: Present: reflexes normal. Absent: motor sensory deficit <Arthur Choi - Last Filed: 11/18/20 13:01> Course Vital Signs 11/18/20 11/18/20 11/18/20 12:24 13:35 14:10 Temperature 98.4 F Pulse Rate 128 H 125 H 114 H Respiratory 22 18 16 Rate Blood Pressure 132/74 122/81 O2 Sat by Pulse 97 94 L Oximetry 11/18/20 11/18/20 16:00 17:22 Temperature 98.3 F Pulse Rate 105 H 116 H Respiratory 16 16 Rate Blood Pressure 120/68 138/86 O2 Sat by Pulse 94 L 98 Oximetry Medical Decision Making - Lab Data Result diagrams: 11/18/20 13:04 11/18/20 13:04 <Diego Hernandez - Last Filed: 11/18/20 17:49> - Medical Decision Making Ultrasound of the head shows a DVT. CT of the chest was ordered shows pulmonary embolism that is a saddle emboli with some possible right heart strain. I spoke with Dr. Molina she will see the patient I consult she wants an echo ordered and she will make a determination about he goes in the morning. High-dose heparin was started patient will be admitted to the ICU. I spoke with Dr. Kirkland he agreed to accept the patient in ICU. I wrote admitting orders. I spoke with [facility] hospitalist and they agreed to admit the patient admitted the patient (Diego Hernandez) - Lab Data Lab Results 11/18/20 11/18/20 11/18/20 Range/Units 13:04 13:04 13:04 WBC 12.4 H (3.8-10.6) k/uL RBC 4.89 (3.80-5.40) m/uL Hgb 14.8 (11.4-16.0) gm/dL Hct 42.7 (34.0-46.0) % MCV 87.4 (80.0-100.0) fL MCH 30.3 (25.0-35.0) pg MCHC 34.6 (31.0-37.0) g/dL RDW 13.3 (11.5-15.5) % Plt Count 116 L (150-450) k/uL MPV 7.9 Neutrophils % 84 % Lymphocytes % 10 % Monocytes % 4 % Eosinophils % 1 % Basophils % 0 % Neutrophils # 10.4 H (1.3-7.7) k/uL Lymphocytes # 1.2 (1.0-4.8) k/uL Monocytes # 0.5 (0-1.0) k/uL Eosinophils # 0.1 (0-0.7) k/uL Basophils # 0.0 (0-0.2) k/uL PT 10.5 (9.0-12.0) sec INR 1.0 (<1.2) APTT 22.0 (22.0-30.0) sec Sodium 138 (137-145) mmol/L Potassium 4.2 (3.5-5.1) mmol/L Chloride 99 (98-107) mmol/L Carbon Dioxide 23 (22-30) mmol/L Anion Gap 16 mmol/L BUN 15 (7-17) mg/dL Creatinine 0.82 (0.52-1.04) mg/dL Est GFR (CKD-EPI)AfAm 83 (>60 ml/min/1.73 sqM) Est GFR (CKD-EPI)NonAf 72 (>60 ml/min/1.73 sqM) Glucose 163 H (74-99) mg/dL Calcium 9.5 (8.4-10.2) mg/dL Total Bilirubin 1.3 (0.2-1.3) mg/dL AST 23 (14-36) U/L ALT 19 (4-34) U/L Alkaline Phosphatase 146 H (38-126) U/L Troponin I (0.000-0.034) ng/mL Total Protein 7.1 (6.3-8.2) g/dL Albumin 4.0 (3.5-5.0) g/dL 11/18/20 Range/Units 13:04 WBC (3.8-10.6) k/uL RBC (3.80-5.40) m/uL Hgb (11.4-16.0) gm/dL Hct (34.0-46.0) % MCV (80.0-100.0) fL MCH (25.0-35.0) pg MCHC (31.0-37.0) g/dL RDW (11.5-15.5) % Plt Count (150-450) k/uL MPV Neutrophils % % Lymphocytes % % Monocytes % % Eosinophils % % Basophils % % Neutrophils # (1.3-7.7) k/uL Lymphocytes # (1.0-4.8) k/uL Monocytes # (0-1.0) k/uL Eosinophils # (0-0.7) k/uL Basophils # (0-0.2) k/uL PT (9.0-12.0) sec INR (<1.2) APTT (22.0-30.0) sec Sodium (137-145) mmol/L Potassium (3.5-5.1) mmol/L Chloride (98-107) mmol/L Carbon Dioxide (22-30) mmol/L Anion Gap mmol/L BUN (7-17) mg/dL Creatinine (0.52-1.04) mg/dL Est GFR (CKD-EPI)AfAm (>60 ml/min/1.73 sqM) Est GFR (CKD-EPI)NonAf (>60 ml/min/1.73 sqM) Glucose (74-99) mg/dL Calcium (8.4-10.2) mg/dL Total Bilirubin (0.2-1.3) mg/dL AST (14-36) U/L ALT (4-34) U/L Alkaline Phosphatase (38-126) U/L Troponin I <0.012 (0.000-0.034) ng/mL Total Protein (6.3-8.2) g/dL Albumin (3.5-5.0) g/dL Critical Care Time Critical Care Time: Yes Total Critical Care Time: 35 <Diego Hernandez - Last Filed: 11/18/20 17:49> Disposition <Arthur Choi - Last Filed: 11/18/20 13:01> Time of Disposition: 17:49 <Diego Hernandez - Last Filed: 11/18/20 17:49> Clinical Impression: Deep vein thrombosis (DVT) of lower extremity, Pulmonary embolism Disposition: ADMITTED IP TO THIS HOSP Referrals: Nonstaff,Physician [Primary Care Provider] - 1-2 days
[2020-11-18 13:24] LABS: Basophils % (A) 0 %; Eosinophils # (A) 0.1 k/uL (0-0.7); Eosinophils % (A) 1 %; HCT 42.7 % (34.0-46.0); HGB 14.8 gm/dL (11.4-16.0); Lymphocytes # (A) 1.2 k/uL (1.0-4.8); Lymphocytes % (A) 10 %; MCH 30.3 pg (25.0-35.0); MCHC 34.6 g/dL (31.0-37.0); MCV 87.4 fL (80.0-100.0); Mean Platelet Volume 7.9; Monocytes # (A) 0.5 k/uL (0-1.0); Monocytes % (A) 4 %; Neutrophils # (A) 10.4 k/uL (1.3-7.7); Neutrophils % (A) 84 %; Platelet Count 116 k/uL (150-450); RBC 4.89 m/uL (3.80-5.40); RDW 13.3 % (11.5-15.5); WBC 12.4 k/uL (3.8-10.6)
[2020-11-18 13:36] LABS: Calcium 9.5 mg/dL (8.4-10.2); Potassium 4.2 mmol/L (3.5-5.1); Total Bilirubin 1.3 mg/dL (0.2-1.3); Total Protein 7.1 g/dL (6.3-8.2)
[2020-11-18 13:47] LABS: Prothrombin Time 10.5 sec (9.0-12.0)
[2020-11-18] MEDS ORDERED: HEPARIN SODIUM 1,000 UN/ML (10ML VL) IV PRN (14:57)
[2020-11-18] MEDS ORDERED: HEPARIN SODIUM 1,000 UN/ML (10ML VL) IV ONE (14:57)
[2020-11-18] MEDS ORDERED: ONDANSETRON 4 MG/2 ML VIAL IVP STA (15:28)
[2020-11-18] MEDS: HEPARIN SOD,PORK IN 0.45% NACL 25,000 UNIT in 0.45% NACL 1 250ML.BAG IV SCH (15:39)
--- NOTE | 2020-11-18 16:08 | CT ---
EXAMINATION TYPE: CT chest angio for PE DATE OF EXAM: 11/18/2020 COMPARISON: None HISTORY: positive for DVT CT DLP: 413.7 mGycm CONTRAST: CT chest with contrast and 3D reconstruction with MIP imaging is performed with IV Contrast, patient injected with 100 mL of Isovue 370. Contrast-enhanced CT of the chest was performed through the course of the pulmonary arteries with pablito g and mediastinal window settings submitted. 3D reconstruction with MIP imaging was also performed. PULMONARY ARTERIES: There is saddle component pulmonary embolism noted within the main pulmonary oswaldo roseanna with moderate burden seen. Filling defects are noted in the first, second and third order pulmon jack arterial branches bilaterally primarily within the lower lobes. Second order pulmonary embolism w ithin the right upper lobe branch. There is reflux into the intrahepatic IVC as well as flattening of the interventricular septum which may reflect a degree of the right ventricular strain. LUNGS: The lungs are clear and free of infiltrate. No evidence for atelectasis. No pulmonary nodule or mass is detected. No pleural effusion. MEDIASTINUM: Thoracic aorta is of normal caliber,however, evaluation is limited given timing of the contrast bolus. If there is concern for thoracic aortic pathology consider [place]. Correlate clinicall y . The heart is not enlarged. No evidence for mediastinal mass. No mediastinal lymph nodes greater than 1cm. Small hiatal hernia. HILAR STRUCTURES: No evidence for mass. No hilar lymph nodes greater than 1 cm. UPPER ABDOMEN: No significant abnormality is seen. IMPRESSION: 1. Moderate burden pulmonary embolism with saddle component identified. Possible right ventricular s train.
[2020-11-18] MEDS ORDERED: NALOXONE 0.4 MG/ML 1 ML VIAL IV PRN (18:14)
[2020-11-18 19:28] LABS: Glucose,Whole Blood 109 mg/dL (75-99)
[2020-11-18] MEDS ORDERED: ACETAMINOPHEN TAB 325 MG TAB PO PRN (19:53)
--- NOTE | 2020-11-18 22:14 | P.GSCN ---
History of Present Illness Consult date: 11/18/20 History of present illness: Amy is a 70 year old female in visiting from [place]. She states that in the past day or so she woke up noticing increased swelling to her left lower extremity. She was having pain in the thigh. She occasionaslly had some exertional shortness of breath. She denies any history of blood clots. She denies any history of trauma or recent travel . She states that since being retired she is far less active adn spends a fair bit of time in bed because she can. She has never had a colonoscopy. Past Medical History Past Medical History: Deep Vein Thrombosis (DVT), Hypertension, Pulmonary Embolus (PE) Additional Past Medical History / Comment(s): Multiple sclerosis History of Any Multi-Drug Resistant Organisms: None Reported Past Surgical History: Cholecystectomy Additional Past Surgical History / Comment(s): bladder surgery Past Anesthesia/Blood Transfusion Reactions: No Reported Reaction Additional Past Anesthesia/Blood Transfusion Reaction / Comm: no previous transfusion Past Psychological History: Depression Additional Psychological History / Comment(s): Pt resides with her spouse in [place] but comes to [place] August to January. She uses a walker to ambulate. 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 Otherwise, she is independent. Smoking Status: Never smoker Past Alcohol Use History: Occasional Past Drug Use History: None Reported - Past Family History Father Family Medical History: Hypertension Mother Family Medical History: No Reported History Additional Family Medical History / Comment(s): Mother was healthy. Medications and Allergies Home Medications Medication Instructions Recorded Confirmed Type RX: Sertraline [Zoloft] 50 mg PO DAILY 10/26/20 11/18/20 History RX: amLODIPine [Norvasc] 5 mg PO DAILY 10/26/20 11/18/20 History Famotidine [Pepcid] 20 mg PO BID #60 tablet 10/31/20 11/18/20 Rx HYDROcodone/APAP 5-325MG [[place] 1 tab PO Q6HR PRN 5 Days #20 tab 10/31/20 11/18/20 Rx 5-325] RX: Cyclobenzaprine [Flexeril] 10 mg PO BID PRN #60 tab 10/31/20 11/18/20 Rx RX: Docusate [Colace] 100 mg PO BID PRN #40 cap 10/31/20 11/18/20 Rx RX: Gabapentin [Neurontin] 300 mg PO BID #60 cap 10/31/20 11/18/20 Rx RX: Tamsulosin [Flomax] 0.4 mg PO PC-BRKFST #30 cap.er.24h 10/31/20 11/18/20 Rx Allergies Allergy/AdvReac Type Severity Reaction Status Date / Time shellfish derived [Shellfish] Allergy Anaphylaxis Verified 11/18/20 16:43 Surgical - Exam Vital Signs Temp Pulse Resp BP Pulse Ox 98.4 F 128 H 22 132/74 97 11/18/20 12:24 11/18/20 12:24 11/18/20 12:24 11/18/20 12:24 11/18/20 12:24 - General well developed, well nourished, no distress - Eyes normal ocular movement, no icteric - ENT no hearing loss, no congestion - Neck no masses, trachea midline - Respiratory normal respiratory effort, clear to auscultation - Cardiovascular tachycardic left loewr extremity swelling. Results US and CT PE reviewed - Labs 11/18/20 13:04 11/18/20 13:04 Abnormal Lab Results - Last 24 Hours (Table) 11/18/20 11/18/20 11/18/20 Range/Units 13:04 13:04 19:27 WBC 12.4 H (3.8-10.6) k/uL Plt Count 116 L (150-450) k/uL Neutrophils # 10.4 H (1.3-7.7) k/uL Glucose 163 H (74-99) mg/dL POC Glucose (mg/dL) 109 H (75-99) mg/dL Alkaline Phosphatase 146 H (38-126) U/L Diabetes panel 11/18/20 Range/Units 13:04 Sodium 138 (137-145) mmol/L Potassium 4.2 (3.5-5.1) mmol/L Chloride 99 (98-107) mmol/L Carbon Dioxide 23 (22-30) mmol/L BUN 15 (7-17) mg/dL Creatinine 0.82 (0.52-1.04) mg/dL Glucose 163 H (74-99) mg/dL Calcium 9.5 (8.4-10.2) mg/dL AST 23 (14-36) U/L ALT 19 (4-34) U/L Alkaline Phosphatase 146 H (38-126) U/L Total Protein 7.1 (6.3-8.2) g/dL Albumin 4.0 (3.5-5.0) g/dL Calcium panel 11/18/20 Range/Units 13:04 Calcium 9.5 (8.4-10.2) mg/dL Albumin 4.0 (3.5-5.0) g/dL Pituitary panel 11/18/20 Range/Units 13:04 Sodium 138 (137-145) mmol/L Potassium 4.2 (3.5-5.1) mmol/L Chloride 99 (98-107) mmol/L Carbon Dioxide 23 (22-30) mmol/L BUN 15 (7-17) mg/dL Creatinine 0.82 (0.52-1.04) mg/dL Glucose 163 H (74-99) mg/dL Calcium 9.5 (8.4-10.2) mg/dL Adrenal panel 11/18/20 Range/Units 13:04 Sodium 138 (137-145) mmol/L Potassium 4.2 (3.5-5.1) mmol/L Chloride 99 (98-107) mmol/L Carbon Dioxide 23 (22-30) mmol/L BUN 15 (7-17) mg/dL Creatinine 0.82 (0.52-1.04) mg/dL Glucose 163 H (74-99) mg/dL Calcium 9.5 (8.4-10.2) mg/dL Total Bilirubin 1.3 (0.2-1.3) mg/dL AST 23 (14-36) U/L ALT 19 (4-34) U/L Alkaline Phosphatase 146 H (38-126) U/L Total Protein 7.1 (6.3-8.2) g/dL Albumin 4.0 (3.5-5.0) g/dL Assessment and Plan Assessment: saddle pulmonary embolism left lower extremity dvt tachycardia d/t PE Plan: currently on hep gtt, continue at this time. Monitor for bleeding given thrombocytopenia, check am labs. Plan for echo to evaluate for right heart stra in. If e/o heart strain will plan for intervention. Current plan and therapies discussed with the patient who seemingly understands and is willing to proceed as such
[2020-11-19 04:25] LABS: Basophils # (A) 0.1 k/uL (0-0.2); Basophils % (A) 1 %; Eosinophils # (A) 0.1 k/uL (0-0.7); Eosinophils % (A) 1 %; HCT 40.3 % (34.0-46.0); HGB 13.5 gm/dL (11.4-16.0); Lymphocytes # (A) 1.8 k/uL (1.0-4.8); Lymphocytes % (A) 17 %; MCH 30.3 pg (25.0-35.0); MCHC 33.6 g/dL (31.0-37.0); Mean Platelet Volume 7.7; Monocytes # (A) 0.6 k/uL (0-1.0); Monocytes % (A) 6 %; Neutrophils # (A) 7.6 k/uL (1.3-7.7); Neutrophils % (A) 73 %; Platelet Count 118 k/uL (150-450); RBC 4.47 m/uL (3.80-5.40); RDW 13.4 % (11.5-15.5); WBC 10.4 k/uL (3.8-10.6)
[2020-11-19 04:41] LABS: African American GFR (CKD) >90 (>60 ml/min/1.73 sqM); Anion Gap 8 mmol/L; Blood Urea Nitrogen 15 mg/dL (7-17); Calcium 8.9 mg/dL (8.4-10.2); Carbon Dioxide 25 mmol/L (22-30); Chloride 101 mmol/L (98-107); Glucose 116 mg/dL (74-99); Non-African American GFR(CKD) 90 (>60 ml/min/1.73 sqM); Potassium 4.1 mmol/L (3.5-5.1); Sodium 134 mmol/L (137-145)
[2020-11-19] MEDS: HEPARIN SOD,PORK IN 0.45% NACL 25,000 UNIT in 0.45% NACL 1 250ML.BAG IV SCH (09:08)
--- NOTE | 2020-11-19 10:05 | P.PN ---
Subjective Progress Note Date: 11/19/20 Principal diagnosis: Pulmonary embolism Seen and examined lying in the ICU. She is on IV heparin drip. She states her shortness of breath is improved if she is just laying there but if she does any exertion she still feels shortness of breath. States her left lower extremity does feel better, no pain. States her swelling is down. No acute changes through the night, she has 2 L of oxygen on and she is saturating at 94-96%. Echocardiogram was obtained this morning, results are still currently pending. Objective - Vital Signs Vital signs: Vital Signs Temp 98.8 F 11/19/20 04:00 Pulse 101 H 11/19/20 07:00 Resp 16 11/19/20 07:00 BP 116/72 11/19/20 07:00 Pulse Ox 92 L 11/19/20 07:00 Intake & Output 11/18/20 11/19/20 11/19/20 18:59 06:59 18:59 Intake Total 323.284 119.977 Balance 323.284 119.977 Weight 90.718 kg 84.5 kg Intake: Intake, IV Titration 123.284 119.977 Amount Heparin Sod,Pork in 0.45% 123.284 119.977 NaCl 25,000 unit In 0.45 % NaCl 1 250ml.bag @ 18 UNITS/KG/HR 16.329 mls/hr IV .[id number] [facility] Rx#: [id number] Oral 200 Other: # Voids 0 600 - Exam General appearance: The patient is alert, oriented, appears in no acute distress. HET: Head is normocephalic and atraumatic. Neck: Supple without lymphadenopathy. Trachea midline. Heart: S1 S2. Regular rate and rhythm. Lungs: Clear to auscultation. Abdomen: Soft, nontender, nondistended. Extremities: Left lower extremity with edema, redness. Bilateral palpable dorsalis pedis pulses. Neurological: No focal deficits. Alert and oriented 3. - Labs CBC & Chem 7: 11/19/20 03:46 11/19/20 03:46 Labs: Abnormal Lab Results - Last 24 Hours (Table) 11/18/20 11/18/20 11/18/20 Range/Units 13:04 13:04 19:27 WBC 12.4 H (3.8-10.6) k/uL Plt Count 116 L (150-450) k/uL Neutrophils # 10.4 H (1.3-7.7) k/uL APTT (22.0-30.0) sec Sodium (137-145) mmol/L Glucose 163 H (74-99) mg/dL POC Glucose (mg/dL) 109 H (75-99) mg/dL Alkaline Phosphatase 146 H (38-126) U/L 11/18/20 11/19/20 11/19/20 Range/Units 21:35 03:46 03:46 WBC (3.8-10.6) k/uL Plt Count 118 L (150-450) k/uL Neutrophils # (1.3-7.7) k/uL APTT 132.4 H* (22.0-30.0) sec Sodium 134 L (137-145) mmol/L Glucose 116 H (74-99) mg/dL POC Glucose (mg/dL) (75-99) mg/dL Alkaline Phosphatase (38-126) U/L 11/19/20 Range/Units 03:46 WBC (3.8-10.6) k/uL Plt Count (150-450) k/uL Neutrophils # (1.3-7.7) k/uL APTT 59.5 H (22.0-30.0) sec Sodium (137-145) mmol/L Glucose (74-99) mg/dL POC Glucose (mg/dL) (75-99) mg/dL Alkaline Phosphatase (38-126) U/L Assessment and Plan Assessment: 1. Saddle pulmonary embolism 2. Left lower extremity DVT 3. Tachycardia due to above 4. Thrombocytopenia Plan: 1. Continue IV heparin drip 2. Echocardiogram ordered stat, results pending 3. Start normal saline 100 ml/hr 4. Keep nothing by mouth for now 5. Further recommendations to follow based on echocardiogram results Thank you for this consultation, we will continue to follow The impression and plan of care has been dictated as directed. Dr. Molina I performed a history and examination of this patient, discussed the same with the dictator. I agree with the dictator's note ,documented as a scribe. Any additional findings or plans will be noted.
[2020-11-19] MEDS: SODIUM CHLORIDE 0.9% 1,000 ML IV SCH ×2 (10:14→20:42)
--- NOTE | 2020-11-19 12:09 | P.CNPUL ---
History of Present Illness Consult date: 11/19/20 Requesting physician: Karin Neff Reason for consult: dyspnea, pulmonary embolism, abnormal CXR/CT Chief complaint: Left lower extremity edema, shortness of breath History of present illness: This is a very pleasant 70-year-old female patient with a known history of multiple sclerosis and maintained on Zoloft, hypertension, gastroesophageal reflux disease, spinal stenosis. She was recently here in October 2020 with complaints of left lower extremity pain and numbness. Doppler of the left lower extremity was negative for DVT. She was found to have spinal stenosis, severe osteoarthritic changes throughout the left knee and some mild changes in the left hip. No surgical intervention was performed. She did receive a lumbar epidural steroid injection and discharged home on 10/31/2020. She was doing quite well for the first 2 weeks without any significant discomfort. She then felt the steroid may have been wearing off, she started to have left lower extremity discomfort again. More swelling than the previous time and some numbness. She was also having some shortness of breath. She returned to the ER yesterday. Doppler of the lower extremities pending. A CT angiogram revealed moderate burden pulmonary embolism with saddle component. Possible right ventricular strain. She was initiated on a heparin drip and placed in the intensive care unit. She been seen by vascular services were waiting for echocardiogram results are to deciding on any intervention. Presently, she is laying flat in bed. Awake and alert in no acute distress. Denies any worsening shortness of breath. No chest pain. No hemoptysis. Maintaining good O2 saturations in the 90s on 2 L/m per nasal cannula. She's been hemodynamically stable. Slightly tachycardic at 104. Afebrile. White count 10.4. Hemoglobin 13.5. Platelets 118,000. Sodium 134. Potassium 4.1. Creatinine 0.63. Review of Systems REVIEW OF SYSTEMS: CONSTITUTIONAL: Denies any recent significant weight loss or weight gain. EYES: Denies change in vision. EARS, NOSE, MOUTH, THROAT: Denies headaches, denies sore throat. CARDIOVASCULAR: Denies chest pain, palpitations or syncopal episodes. RESPIRATORY: Positive for shortness of breath, no cough, congestion or hemoptysis. GASTROINTESTINAL: Denies change in appetite, denies abdominal pain GENITOURINARY: Denies hematuria, denies infections. MUSKULOSKELETAL: Positive for swelling of the left lower extremity. INTEGUMENTARY: Denies rash, denies eczema. NEUROLOGICAL: Denies recent memory loss, no recent seizure activity. PSYCHIATRIC: Denies anxiety, denies depression. HEMATOLOGIC/LYMPHATIC: Denies anemia, denies enlarged lymph nodes. Past Medical History Past Medical History: Deep Vein Thrombosis (DVT), Hypertension, Pulmonary Embolus (PE) Additional Past Medical History / Comment(s): Multiple sclerosis History of Any Multi-Drug Resistant Organisms: None Reported Past Surgical History: Cholecystectomy Additional Past Surgical History / Comment(s): bladder surgery Past Anesthesia/Blood Transfusion Reactions: No Reported Reaction Additional Past Anesthesia/Blood Transfusion Reaction / Comment(s): no previous transfusion Past Psychological History: Depression Additional Psychological History / Comment(s): Pt resides with her spouse in [place] but comes to [place] August to January. She uses a walker to ambulate. 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 Otherwise, she is independent. Smoking Status: Never smoker Past Alcohol Use History: Occasional Past Drug Use History: None Reported - Past Family History Father Family Medical History: Hypertension Mother Family Medical History: No Reported History Additional Family Medical History / Comment(s): Mother was healthy. Medications and Allergies Home Medications Medication Instructions Recorded Confirmed Type Sertraline [Zoloft] 50 mg PO DAILY 10/26/20 11/18/20 History amLODIPine [Norvasc] 5 mg PO DAILY 10/26/20 11/18/20 History Cyclobenzaprine [Flexeril] 10 mg PO BID PRN #60 tab 10/31/20 11/18/20 Rx Docusate [Colace] 100 mg PO BID PRN #40 cap 10/31/20 11/18/20 Rx Famotidine [Pepcid] 20 mg PO BID #60 tablet 10/31/20 11/18/20 Rx Gabapentin [Neurontin] 300 mg PO BID #60 cap 10/31/20 11/18/20 Rx HYDROcodone/APAP 5-325MG [[place] 1 tab PO Q6HR PRN 5 Days #20 tab 10/31/20 11/18/20 Rx 5-325] Tamsulosin [Flomax] 0.4 mg PO PC-BRKFST #30 cap.er.24h 10/31/20 11/18/20 Rx Allergies Allergy/AdvReac Type Severity Reaction Status Date / Time shellfish derived [Shellfish] Allergy Anaphylaxis Verified 11/18/20 16:43 Physical Exam Vitals: Vital Signs Temp Pulse Resp BP Pulse Ox 11/19/20 10:00 104 H 20 126/68 93 L 11/19/20 09:00 93 16 117/63 95 11/19/20 08:00 97.1 F L 102 H 17 114/67 93 L 11/19/20 07:00 101 H 16 116/72 92 L 11/19/20 06:00 93 20 116/70 93 L 11/19/20 05:00 102 H 19 111/74 91 L 11/19/20 04:00 98.8 F 112 H 26 H 108/61 96 11/19/20 03:00 111 H 18 114/62 91 L 11/19/20 02:00 101 H 20 113/63 91 L 11/19/20 01:00 111 H 20 114/72 92 L 11/19/20 00:01 111 H 18 117/67 92 L 11/19/20 00:00 107 H 20 117/67 93 L 11/18/20 23:30 112 H 18 117/67 91 L 11/18/20 23:00 113 H 20 90 L 11/18/20 22:30 114 H 19 121/65 90 L 11/18/20 22:00 113 H 19 92 L 11/18/20 21:30 115 H 19 119/58 92 L 11/18/20 21:00 112 H 20 92 L 11/18/20 20:30 112 H 18 135/71 93 L 11/18/20 20:00 115 H 31 H 93 L 11/18/20 19:30 109 H 17 132/76 96 11/18/20 19:25 16 11/18/20 18:52 99.3 F 16 98 11/18/20 18:45 98.4 F 109 H 16 140/82 99 11/18/20 17:22 98.3 F 116 H 16 138/86 98 11/18/20 16:00 105 H 16 120/68 94 L 11/18/20 14:10 114 H 16 122/81 94 L 11/18/20 13:35 125 H 18 11/18/20 12:24 98.4 F 128 H 22 132/74 97 Intake and Output 11/18/20 11/19/20 11/19/20 22:59 06:59 14:59 Intake Total 200 123.284 119.977 Output Total 155 Balance 200 123.284 -35.023 Intake: Intake, IV Titration 123.284 119.977 Amount Heparin Sod,Pork in 0.45% 123.284 119.977 NaCl 25,000 unit In 0.45 % NaCl 1 250ml.bag @ 18 UNITS/KG/HR 16.329 mls/hr IV .[id number] [facility] Rx#: [id number] Oral 200 Output: Urine 155 Other: # Voids 0 0 600 Weight 90.718 kg 84.5 kg GENERAL EXAM: Alert, oriented 3, very pleasant 70-year-old female patient, on 2 L nasal cannula, fairly comfortable in no apparent distress. HEAD: Normocephalic. EYES: Normal reaction of pupils, equal size. NOSE: Clear with pink turbinates. THROAT: No erythema or exudates. NECK: No masses, no JVD. CHEST: No chest wall deformity. LUNGS: Equal air entry with no crackles, wheeze, rhonchi or dullness. CVS: S1 and S2 normal with no audible murmur, regular rhythm. ABDOMEN: No hepatosplenomegaly, normal bowel sounds, no guarding or rigidity. SPINE: No scoliosis or deformity SKIN: No rashes CENTRAL NERVOUS SYSTEM: No focal deficits, tone is normal in all 4 extremities. EXTREMITIES: There is 1-2+ edema of the left lower extremity No clubbing, no cyanosis. Peripheral pulses are intact. Results - Laboratory Findings CBC and BMP: 11/19/20 03:46 11/19/20 03:46 PT/INR, D-dimer PT 10.5 sec (9.0-12.0) 11/18/20 13:04 INR 1.0 (<1.2) 11/18/20 13:04 Abnormal lab findings: Abnormal Labs 11/18/20 11/18/20 11/18/20 13:04 13:04 19:27 WBC 12.4 H Plt Count 116 L Neutrophils # 10.4 H APTT Sodium Glucose 163 H POC Glucose (mg/dL) 109 H Alkaline Phosphatase 146 H 11/18/20 11/19/20 11/19/20 21:35 03:46 03:46 WBC Plt Count 118 L Neutrophils # APTT 132.4 H* Sodium 134 L Glucose 116 H POC Glucose (mg/dL) Alkaline Phosphatase 11/19/20 03:46 WBC Plt Count Neutrophils # APTT 59.5 H Sodium Glucose POC Glucose (mg/dL) Alkaline Phosphatase - Diagnostic Findings CT scan - chest: image reviewed Assessment and Plan Assessment: 1 Acute hypoxemic respiratory failure secondary to an acute saddle pulmonary embolism with suspected left lower extremity DVT, most likely secondary to sedentary lifestyle, currently hemodynamically stable 2 Multiple sclerosis with progressive weakness and sedentary lifestyle 3 Recent admission for left lower extremity discomfort, Doppler negative 10/26/2020, improved following epidural steroid injection 4 History of hypertension Plan: The patient was seen and evaluated by Dr. Kirkland CAT scan and labs reviewed Continue heparin drip for now Would recommend lifelong anticoagulation Echocardiogram pending Doppler of the left lower extremity pending Titrate the FiO2 as tolerated Continue to monitor her here in the ICU We will continue to follow and make further recommendations based on her clinical status I, the cosigning physician, performed a history & physical examination of the patient. Lungs sounds are clear. Maintaining good O2 saturations in the 90s on 2 L/m per nasal cannula. I discussed the assessment and plan of care with my nurse practitioner, Nicki Benavidez. I attest to the above consultation as dictated by her. Time with Patient: Greater than 30
--- NOTE | 2020-11-19 12:12 | ECHOF ---
Referral Reason:Pulmonary embolism MEASUREMENTS -------- HEIGHT: 162.6 cm WEIGHT: 84.4 kg BP: IVSd: 1.0 cm (0.6 - 1.1) LVIDd: 4.3 cm (3.9 - 5.3) LVPWd: 1.2 cm (0.6 - 1.1) EDV(Teich): 84 ml IVSs: 1.5 cm LVIDs: 2.5 cm LVPWs: 1.7 cm %IVS Thck: 61 % ESV(Teich): 22 ml EF(Teich): 74 % %FS: 43 % SV(Teich): 63 ml RVIDd: 3.0 cm (< 3.3) LALs A4C: 6.4 cm LAAs A4C: 19.9 cm LAESV A-L A4C: 52 ml LAESV MOD A4C: 51 ml LALs A2C: 4.3 cm LAAs A2C: 13.2 cm LAESV A-L A2C: 34 ml LAESV MOD A2C: 33 ml LAESV(A-L): 51 ml LAESV Index (A-L): 27.02 ml/m Ao Diam: 2.6 cm (2.0 - 3.7) LA Diam: 3.6 cm (2.7 - 3.8) AV Cusp: 1.6 cm (1.5 - 2.6) MV E Girish: 0.33 m/s MV DecT: 220 ms MV Dec Pickens: 1.5 m/s MV A Girish: 0.75 m/s MV E/A Ratio: 0.44 MV PHT: 64 ms TR Vmax: 1.99 m/s TR maxP.77 mmHg RAP: 5.00 mmHg RVSP: 20.77 mmHg RV S Prime: 7.97 cm/s TAPSE: 23.08 mm FINDINGS -------- Sinus rhythm. This was a technically adequate study. LV size, wall thickness and systolic function are normal, with an EF greater than 55%. The left anamaria tricular size is normal. The right ventricle is normal in size. The left atrial size is normal. The right atrial size is normal. Mild mitral regurgitation is present. Mild tricuspid regurgitation present. Right ventricular systolic pressure is normal at < 35 mmHg. The pulmonic valve was not well visualized. Echo free space represents a pericardial fat pad. CONCLUSIONS -------- 1. LV size, wall thickness and systolic function are normal, with an EF greater than 55%. 2. The left ventricular size is normal. 3. The right ventricle is normal in size. 4. The left atrial size is normal. 5. The right atrial size is normal. 6. Mild mitral regurgitation is present. 7. Mild tricuspid regurgitation present. 8. The pulmonic valve was not well visualized. 9. Echo free space represents a pericardial fat pad. GLASS LAMINATING OPERATOR: Aura Esquivel RDCS
[2020-11-19] MEDS ORDERED: CYCLOBENZAPRINE 10 MG TAB PO PRN (12:57)
[2020-11-19] MEDS ORDERED: DOCUSATE 100 MG CAP PO PRN (12:57)
--- NOTE | 2020-11-19 13:44 | P.HPIM ---
History of Present Illness Patient is a very pleasant 68-year-old female with known history of multiple sclerosis mostly limited mobility because of multiple sclerosis and chronic weakness came in with the complaints of her left eye lower extremity numbness in creases swelling found to have extensive DVT of the left lower extremity. Patient to mobility is also limited because of spinal stenosis severe also arthritic changes of the left knee patient received a lumbar epidural steroid injection. Patient was also having shortness of breath because of a CT angiogram was obtained which showed moderate burden pulmonary embolism with saddle competent because of which are into inta lesional thrombotic therapy was considered and vascular surgery was consulted, vascular surgery evaluated the patient they recommended continuing heparin echocardiac exam was obtained which did not show any significant right ventricle strain and patient doesn't have any significant troponin elevation because of which they're not recommending proceeding with intralesional thrombolytic therapy. Patient will be transitioned to [facility]. REVIEW OF SYSTEMS: CONSTITUTIONAL: No fever, no malaise, no fatigue. HEENT: No recent visual problems or hearing problems. Denied any sore throat. CARDIOVASCULAR: No, orthopnea, PND, no palpitations, no syncope. PULMONARY: no hemoptysis. GASTROINTESTINAL: No diarrhea, no nausea, no vomiting, no abdominal pain. NEUROLOGICAL: No headaches, no weakness, no numbness. HEMATOLOGICAL: Denies any bleeding or petechiae. GENITOURINARY: Denies any burning micturition, frequency, or urgency. MUSCULOSKELETAL/RHEUMATOLOGICAL: Denies any joint pain, swelling, or any muscle pain. ENDOCRINE: Denies any polyuria or polydipsia. The rest of the 14-point review of systems is negative. PHYSICAL EXAMINATION: GENERAL: The patient is alert and oriented x3, not in any acute distress. Well developed, well nourished. HEENT: Pupils are round and equally reacting to light. EOMI. No scleral icterus. No conjunctival pallor. Normocephalic, atraumatic. No pharyngeal erythema. No thyromegaly. CARDIOVASCULAR: S1 and S2 present. No murmurs, rubs, or gallops. PULMONARY: Chest is clear to auscultation, no wheezing or crackles. ABDOMEN: Soft, nontender, nondistended, normoactive bowel sounds. No palpable organomegaly. MUSCULOSKELETAL: No joint swelling or deformity. EXTREMITIES: No cyanosis, clubbing, or tenderness swelling in the left lower extremity NEUROLOGICAL: Gross neurological examination did not reveal any new focal defic its. Chronic weakness and bilateral lower extremities SKIN: No rashes. Assessment and plan -Acute pulmonary embolism moderate load and moderate risk be with left lower extremity DVT: Patient doesn't have any right ventricular strain, basilar surgery valid the patient pulmonary valid to the patient patient will be transitioned from IV heparin to Eliquis. Her left lower extremity DVT is believed to be secondary to mostly sedentary lifestyle which may not change because of her history of multiple sclerosis and severe degenerative arthritis monitor joint along with back pain, because of this pulmonary is recommending lifelong anticoagulation. Patient will need a screening colonoscopy as well. The same thing was extending to the patient -Multiple sclerosis with the progressive weakness -Chronic low back pain -Severe degenerative arthritis -Hypertension Past Medical History Past Medical History: Deep Vein Thrombosis (DVT), Hypertension, Pulmonary Embolus (PE) Additional Past Medical History / Comment(s): Multiple sclerosis History of Any Multi-Drug Resistant Organisms: None Reported Past Surgical History: Cholecystectomy Additional Past Surgical History / Comment(s): bladder surgery Past Anesthesia/Blood Transfusion Reactions: No Reported Reaction Additional Past Anesthesia/Blood Transfusion Reaction / Comment(s): no previous transfusion Past Psychological History: Depression Additional Psychological History / Comment(s): Pt resides with her spouse in [place] but comes to [place] August to January. She uses a walker to ambulate. 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 Otherwise, she is independent. Smoking Status: Never smoker Past Alcohol Use History: Occasional Past Drug Use History: None Reported - Past Family History Father Family Medical History: Hypertension Mother Family Medical History: No Reported History Additional Family Medical History / Comment(s): Mother was healthy. Medications and Allergies Home Medications Medication Instructions Recorded Confirmed Type Sertraline [Zoloft] 50 mg PO DAILY 10/26/20 11/18/20 History amLODIPine [Norvasc] 5 mg PO DAILY 10/26/20 11/18/20 History Cyclobenzaprine [Flexeril] 10 mg PO BID PRN #60 tab 10/31/20 11/18/20 Rx Docusate [Colace] 100 mg PO BID PRN #40 cap 10/31/20 11/18/20 Rx Famotidine [Pepcid] 20 mg PO BID #60 tablet 10/31/20 11/18/20 Rx Gabapentin [Neurontin] 300 mg PO BID #60 cap 10/31/20 11/18/20 Rx HYDROcodone/APAP 5-325MG [[place] 1 tab PO Q6HR PRN 5 Days #20 tab 10/31/20 11/18/20 Rx 5-325] Tamsulosin [Flomax] 0.4 mg PO PC-BRKFST #30 cap.er.24h 10/31/20 11/18/20 Rx Apixaban [Eliquis Starter Pack 0 mg PO DIRECTED 30 Days #1 pack 11/19/20 Rx (for VTE)] Allergies Allergy/AdvReac Type Severity Reaction Status Date / Time shellfish derived [Shellfish] Allergy Anaphylaxis Verified 11/18/20 16:43 Physical Exam Vitals: Vital Signs Temp Pulse Resp BP Pulse Ox 11/19/20 10:00 104 H 20 126/68 93 L 11/19/20 09:00 93 16 117/63 95 11/19/20 08:00 97.1 F L 102 H 17 114/67 93 L 11/19/20 07:00 101 H 16 116/72 92 L 11/19/20 06:00 93 20 116/70 93 L 11/19/20 05:00 102 H 19 111/74 91 L 11/19/20 04:00 98.8 F 112 H 26 H 108/61 96 11/19/20 03:00 111 H 18 114/62 91 L 11/19/20 02:00 101 H 20 113/63 91 L 11/19/20 01:00 111 H 20 114/72 92 L 11/19/20 00:01 111 H 18 117/67 92 L 11/19/20 00:00 107 H 20 117/67 93 L 11/18/20 23:30 112 H 18 117/67 91 L 11/18/20 23:00 113 H 20 90 L 11/18/20 22:30 114 H 19 121/65 90 L 11/18/20 22:00 113 H 19 92 L 11/18/20 21:30 115 H 19 119/58 92 L 11/18/20 21:00 112 H 20 92 L 11/18/20 20:30 112 H 18 135/71 93 L 11/18/20 20:00 115 H 31 H 93 L 11/18/20 19:30 109 H 17 132/76 96 11/18/20 19:25 16 11/18/20 18:52 99.3 F 16 98 11/18/20 18:45 98.4 F 109 H 16 140/82 99 11/18/20 17:22 98.3 F 116 H 16 138/86 98 11/18/20 16:00 105 H 16 120/68 94 L 11/18/20 14:10 114 H 16 122/81 94 L Intake and Output 11/18/20 11/19/20 11/19/20 22:59 06:59 14:59 Intake Total 200 123.284 119.977 Output Total 155 Balance 200 123.284 -35.023 Intake: Intake, IV Titration 123.284 119.977 Amount Heparin Sod,Pork in 0.45% 123.284 119.977 NaCl 25,000 unit In 0.45 % NaCl 1 250ml.bag @ 18 UNITS/KG/HR 16.329 mls/hr IV .[id number] [facility] Rx#: [id number] Oral 200 Output: Urine 155 Other: # Voids 0 0 600 Weight 90.718 kg 84.5 kg Results CBC & Chem 7: 11/19/20 03:46 11/19/20 03:46 Labs: Abnormal Lab Results - Last 24 Hours (Table) 11/18/20 11/18/20 11/19/20 Range/Units 19:27 21:35 03:46 Plt Count 118 L (150-450) k/uL APTT 132.4 H* (22.0-30.0) sec Sodium (137-145) mmol/L Glucose (74-99) mg/dL POC Glucose (mg/dL) 109 H (75-99) mg/dL 11/19/20 11/19/20 Range/Units 03:46 03:46 Plt Count (150-450) k/uL APTT 59.5 H (22.0-30.0) sec Sodium 134 L (137-145) mmol/L Glucose 116 H (74-99) mg/dL POC Glucose (mg/dL) (75-99) mg/dL Thrombosis Risk Factor Assmnt - Choose All That Apply Each Risk Factor Represents 2 Points: Age 61-74 years Each Risk Factor Represents 3 Points: History of DVT/PE Thrombosis Risk Factor Assessment Total Risk Factor Score: 5 Thrombosis Risk Factor Assessment Level: High Risk
[2020-11-19] MEDS: APIXABAN 5 MG TAB PO SCH (13:53)
[2020-11-19] MEDS: HYDROcodone/APAP 5-325MG 1 EACH TAB PO PRN (16:40)
--- NOTE | 2020-11-19 17:38 | US ---
EXAMINATION TYPE: US venous doppler duplex LE LT DATE OF EXAM: 11/18/2020 2:03 PM COMPARISON: NONE CLINICAL HISTORY: pain,swelling. SIDE PERFORMED: TECHNIQUE: The lower extremity deep venous system is examined utilizing real time linear array sonog breanna with graded compression, doppler sonography and color-flow sonography. VESSELS IMAGED: Common Femoral Vein Deep Femoral Vein Greater Saphenous Vein * Femoral Vein Popliteal Vein Small Saphenous Vein * Proximal Calf Veins (* superficial vessels) Left Leg: There is no flow demonstrated in the femoral vein and popliteal vein. There is to be complete occlusi on. IMPRESSION: There is acute deep vein thrombosis throughout the femoral and popliteal vein on the left leg which is a change compared to old exam.
[2020-11-19] MEDS: FAMOTIDINE 20 MG TAB PO SCH (20:41)
[2020-11-19] MEDS: GABAPENTIN 300 MG CAP PO SCH (20:41)
[2020-11-20] MEDS: APIXABAN 5 MG TAB PO SCH ×3 (00:26→20:20)
[2020-11-20 05:35] LABS: Basophils % (A) 1 %; Eosinophils # (A) 0.1 k/uL (0-0.7); Eosinophils % (A) 1 %; HCT 37.6 % (34.0-46.0); HGB 13.2 gm/dL (11.4-16.0); Lymphocytes # (A) 1.2 k/uL (1.0-4.8); Lymphocytes % (A) 14 %; MCHC 35.2 g/dL (31.0-37.0); MCV 88.2 fL (80.0-100.0); Mean Platelet Volume 7.3; Monocytes # (A) 0.5 k/uL (0-1.0); Monocytes % (A) 6 %; Neutrophils # (A) 6.1 k/uL (1.3-7.7); Neutrophils % (A) 75 %; Platelet Count 135 k/uL (150-450); RBC 4.27 m/uL (3.80-5.40); RDW 13.4 % (11.5-15.5); WBC 8.1 k/uL (3.8-10.6)
[2020-11-20 05:49] LABS: African American GFR (CKD) >90 (>60 ml/min/1.73 sqM); Anion Gap 10 mmol/L; Blood Urea Nitrogen 11 mg/dL (7-17); Calcium 8.1 mg/dL (8.4-10.2); Carbon Dioxide 22 mmol/L (22-30); Chloride 103 mmol/L (98-107); Glucose 98 mg/dL (74-99); Non-African American GFR(CKD) >90 (>60 ml/min/1.73 sqM); Potassium 3.9 mmol/L (3.5-5.1); Sodium 135 mmol/L (137-145)
[2020-11-20] MEDS: SODIUM CHLORIDE 0.9% 1,000 ML IV SCH (06:46)
[2020-11-20] MEDS: GABAPENTIN 300 MG CAP PO SCH ×2 (07:54→20:20)
[2020-11-20] MEDS: TAMSULOSIN 0.4 MG CAP.ER.24H PO SCH (07:54)
[2020-11-20] MEDS: SERTRALINE 50 MG TAB PO SCH (07:54)
[2020-11-20] MEDS: FAMOTIDINE 20 MG TAB PO SCH ×2 (07:54→20:20)
--- NOTE | 2020-11-20 13:35 | P.PN ---
Subjective Progress Note Date: 11/20/20 Principal diagnosis: Acute DVT and pulmonary embolism This is a very pleasant 70-year-old female patient with a known history of multiple sclerosis and maintained on Zoloft, hypertension, gastroesophageal reflux disease, spinal stenosis. She was recently here in October 2020 with complaints of left lower extremity pain and numbness. Doppler of the left lower extremity was negative for DVT. She was found to have spinal stenosis, severe osteoarthritic changes throughout the left knee and some mild changes in the left hip. No surgical intervention was performed. She did receive a lumbar epidural steroid injection and discharged home on 10/31/2020. She was doing quite well for the first 2 weeks without any significant discomfort. She then felt the steroid may have been wearing off, she started to have left lower extremity discomfort again. More swelling than the previous time and some numbness. She was also having some shortness of breath. She returned to the ER yesterday. Doppler of the lower extremities pending. A CT angiogram revealed moderate burden pulmonary embolism with saddle component. Possible right ventricular strain. She was initiated on a heparin drip and placed in the intensive care unit. She been seen by vascular services were waiting for echocardiogram results are to deciding on any intervention. Presently, she is laying flat in bed. Awake and alert in no acute distress. Denies any worsening shortness of breath. No chest pain. No hemoptysis. Maintaining good O2 saturations in the 90s on 2 L/m per nasal cannula. She's been hemodynamically stable. Slightly tachycardic at 104. Afebrile. White count 10.4. Hemoglobin 13.5. Platelets 118,000. Sodium 134. Potassium 4.1. Creatinine 0.63. Reevaluated today on 11/20/2020, patient remains in the ICU, she is hemodynamically stable, she is on room air, her heparin was transitioned to Eliquis, and apparently vascular surgery is not planning any intervention except medical therapy. Pulmonary-mejia the patient is doing great, asymptomatic, and I will arrange for the patient be transferred out of the ICU to a regular medical floor. CBC is normal. Electrolytes and renal profile are normal. Patient is relatively asymptomatic. Objective - Vital Signs Vital signs: Vital Signs Temp 98.5 F 11/20/20 08:00 Pulse 101 H 11/20/20 09:00 Resp 17 11/20/20 09:00 BP 117/93 11/20/20 09:00 Pulse Ox 95 11/20/20 09:00 Intake & Output 11/19/20 11/20/20 11/20/20 18:59 06:59 18:59 Intake Total 185.628 2182 200 Output Total 360 495 35 Balance 852.961 7518 165 Weight 84.4 kg Intake: IV 800 1300 200 Sodium Chloride 0.9% 1, 800 1300 200 000 ml @ 100 mls/hr IV . Q10H [facility] Rx#:[id number] Intake, IV Titration 119.977 Amount Heparin Sod,Pork in 0.45% 119.977 NaCl 25,000 unit In 0.45 % NaCl 1 250ml.bag @ 18 UNITS/KG/HR 16.329 mls/hr IV .[id number] [facility] Rx#: [id number] Oral 30 200 Output: Urine 360 495 35 Other: Voiding Method Indwelling Catheter Indwelling Catheter Indwelling Catheter # Voids 600 - Exam Physical Exam: Revealed a 70-year-old female in no distress. Head: Atraumatic normocephalic. HEENT:[Neck is supple.] [No neck masses.] [No thyromegaly.] [No JVD.] Chest: [Clear throughout, no crackles, no rhonchi, no wheezes.] Cardiac Exam: [Normal S1 and S2, no S3 gallop, no murmur.] Abdomen: [Soft, nontender, no megaly, no rebound, no guarding, normal bowel sounds.] Extremities: [Left lower extremity remains quite swollen, edematous, good pulses bilaterally. Neurological Exam: [No focal neurologic deficit.] Alert oriented 3. Psychiatric: Normal mood, affect and normal mental status examination. Skin: No rashes. - Labs CBC & Chem 7: 11/20/20 05:15 11/20/20 05:15 Labs: Abnormal Lab Results - Last 24 Hours (Table) 11/20/20 11/20/20 Range/Units 05:15 05:15 Plt Count 135 L (150-450) k/uL Sodium 135 L (137-145) mmol/L Calcium 8.1 L (8.4-10.2) mg/dL Assessment and Plan Assessment: Impression: Acute hypoxic respiratory failure secondary to acute pulmonary embolism and left lower extremity deep vein thrombosis. Most likely triggered by sedentary lifestyle. History of MS. Benign essential hypertension. Recommendation: Continue present treatment plan. Transfer patient out of the ICU to a regular medical floor. Patient will need to be on lifelong anticoagulation therapy considering her lifestyle and her she would always be a set up for hypercoagulable state and DVT as well as pulmonary embolism. We'll sign off and see the patient on when necessary basis Time with Patient: Less than 30
--- NOTE | 2020-11-20 14:06 | P.DS ---
Providers Date of admission: 11/18/20 18:14 Attending physician: Karin Neff Consults: 11/18/20 18:14 Consult Physician Routine Consulting Provider: Gissell Molina Consult Reason/Comments: Pulmonary embolism Do you want consulting provider notified?: Yes Consult Physician Stat Consulting Provider: Juan Kirkland Consult Reason/Comments: Critical care management Do you want consulting provider notified?: Yes Primary care physician: Physician Nonstaff Hospital Course: Patient is a very pleasant 68-year-old female with known history of multiple sclerosis mostly limited mobility because of multiple sclerosis and chronic weakness came in with the complaints of her left eye lower extremity numbness increases swelling found to have extensive DVT of the left lower extremity. Patient to mobility is also limited because of spinal stenosis severe also arthritic changes of the left knee patient received a lumbar epidural steroid injection. Patient was also having shortness of breath because of a CT angiogram was obtained which showed moderate burden pulmonary embolism with saddle competent because of which are into inta lesional thrombotic therapy was considered and vascular surgery was consulted, vascular surgery evaluated the patient they recommended continuing heparin echocardiac exam was obtained which did not show any significant right ventricle strain and patient doesn't have any significant troponin elevation because of which they're not recommending proceeding with intralesional thrombolytic therapy. Patient will be transitioned to [facility]. 11/20/2020 Patient respiratory status is doing well down the patient has significant generalized weakness and patient is requiring 2 person assist. Physical therapy and occupational to be will evaluate the patient patient probably need to be discharged to subacute rehabilitation. If possible and if we are able to arrange for discharge patient will be discharged to subacute rehabilitation today. Patient has significant swelling in the left leg and will need compression socks. Constitutional: Denied any fatigue denied any fever. Cardio vascular: denied any chest pain, palpitations Gastrointestinal denied any nausea vomiting Pulmonary: Denied any shortness of breath cough Neurologic denied any new focal deficits All inpatient medications were reviewed and appropriate changes in these medications as dictated in the interval history and assessment and plan. PHYSICAL EXAMINATION: GENERAL: The patient is alert and oriented x3, not in any acute distress. Well developed, well nourished. HEENT: Pupils are round and equally reacting to light. EOMI. No scleral icterus. No conjunctival pallor. Normocephalic, atraumatic. No pharyngeal erythema. No thyromegaly. CARDIOVASCULAR: S1 and S2 present. No murmurs, rubs, or gallops. PULMONARY: Chest is clear to auscultation, no wheezing or crackles. ABDOMEN: Soft, nontender, nondistended, normoactive bowel sounds. No palpable organomegaly. MUSCULOSKELETAL: No joint swelling or deformity. EXTREMITIES: No cyanosis, clubbing, swelling in the left lower extremity NEUROLOGICAL: Gross neurological examination did not reveal any new focal deficits. Chronic weakness and bilateral lower extremities SKIN: No rashes. Assessment and plan -Acute pulmonary embolism moderate load and moderate risk be with left lower extremity DVT: Patient doesn't have any right ventricular strain, vascular surgery and pulmonary evaluated the patient patient is on Eliquis. Her left lower extremity DVT is believed to be secondary to mostly sedentary lifestyle which may not change because of her history of multiple sclerosis and severe degenerative arthritis monitor joint along with back pain, because of this pulmonary is recommending lifelong anticoagulation. Patient will need a s creening colonoscopy as well. The same thing was extending to the patient -Multiple sclerosis with the progressive weakness -Chronic low back pain -Severe degenerative arthritis -Hypertension Consider this as a progress note as patient was not discharged on this day Plan - Discharge Summary Discharge Rx Participant: Yes New Discharge Prescriptions: New Apixaban [Eliquis Starter Pack (for VTE)] 0 mg PO DIRECTED 30 Days #1 pack Continue Sertraline [Zoloft] 50 mg PO DAILY Docusate [Colace] 100 mg PO BID PRN #40 cap PRN Reason: Constipation Cyclobenzaprine [Flexeril] 10 mg PO BID PRN #60 tab PRN Reason: Muscle Spasm Gabapentin [Neurontin] 300 mg PO BID #60 cap HYDROcodone/APAP 5-325MG [[place] 5-325] 1 tab PO Q6HR PRN 5 Days #20 tab PRN Reason: Severe Pain Tamsulosin [Flomax] 0.4 mg PO PC-BRKFST #30 cap.er.24h Famotidine [Pepcid] 20 mg PO BID #60 tablet Changed amLODIPine [Norvasc] 2.5 mg PO DAILY #0 Discharge Medication List Sertraline [Zoloft] 50 mg PO DAILY 10/26/20 [History] Cyclobenzaprine [Flexeril] 10 mg PO BID PRN #60 tab 10/31/20 [Rx] Docusate [Colace] 100 mg PO BID PRN #40 cap 10/31/20 [Rx] Famotidine [Pepcid] 20 mg PO BID #60 tablet 10/31/20 [Rx] Gabapentin [Neurontin] 300 mg PO BID #60 cap 10/31/20 [Rx] HYDROcodone/APAP 5-325MG [[place] 5-325] 1 tab PO Q6HR PRN 5 Days #20 tab 10/31/20 [Rx] Tamsulosin [Flomax] 0.4 mg PO PC-BRKFST #30 cap.er.24h 10/31/20 [Rx] Apixaban [Eliquis Starter Pack (for VTE)] 0 mg PO DIRECTED 30 Days #1 pack 11/19/20 [Rx] amLODIPine [Norvasc] 2.5 mg PO DAILY #0 11/20/20 [Rx] Follow up Appointment(s)/Referral(s): Conrad Hinson MD [STAFF PHYSICIAN] - 1-2 Days Gissell Molina DO [STAFF PHYSICIAN] - As Needed (If still in [place] in a couple weeks you may follow up with Dr. Molina) [facility] [NON-STAFF] - Activity/Diet/Wound Care/Special Instructions: Copay for Eliquis is $47. [facility] pharmacy will apply 1 free month coupon. Discharge Disposition: TRANSFER TO SNF/ECF
[2020-11-21] MEDS: GABAPENTIN 300 MG CAP PO SCH ×2 (07:50→21:10)
[2020-11-21] MEDS: SERTRALINE 50 MG TAB PO SCH (07:50)
[2020-11-21] MEDS: APIXABAN 5 MG TAB PO SCH ×2 (07:50→21:10)
[2020-11-21] MEDS: FAMOTIDINE 20 MG TAB PO SCH ×2 (07:51→21:11)
[2020-11-21] MEDS: TAMSULOSIN 0.4 MG CAP.ER.24H PO SCH (07:51)
--- NOTE | 2020-11-21 15:15 | P.PN ---
Subjective Patient is a very pleasant 68-year-old female with known history of multiple sclerosis mostly limited mobility because of multiple sclerosis and chronic weakness came in with the complaints of her left lower extremity numbness increases swelling found to have extensive DVT of the left lower extremity. Patient to mobility is also limited because of spinal stenosis severe also arthritic changes of the left knee patient received a lumbar epidural steroid injection. Patient was also having shortness of breath because of a CT angiogram was obtained which showed moderate burden pulmonary embolism with saddle competent because of which are into inta lesional thrombotic therapy was considered and vascular surgery was consulted, vascular surgery evaluated the patient they recommended continuing heparin echocardiac exam was obtained which did not show any significant right ventricle strain and patient doesn't have any significant troponin elevation because of which they're not recommending proceeding with intralesional thrombolytic therapy. Patient will be transitioned to [facility]. Today patient denies any chest pain or dyspnea, complaining of from swollen left leg and hold lower extremity but no pain. Patient pending physical therapy evaluation for possible ECF upon discharge Check hemoglobin tomorrow Objective - Vital Signs Vital signs: Vital Signs Temp 97.9 F 11/21/20 13:17 Pulse 114 H 11/21/20 13:17 Resp 19 11/21/20 13:17 BP 110/70 11/21/20 13:17 Pulse Ox 95 11/21/20 13:17 Intake & Output 11/20/20 11/21/20 11/21/20 18:59 06:59 18:59 Intake Total 436 236 Output Total 435 Balance 1 236 Intake: IV 200 Sodium Chloride 0.9% 1, 200 000 ml @ 100 mls/hr IV . Q10H [facility] Rx#:[id number] Oral 236 236 Output: Urine 435 Other: Voiding Method Indwelling Catheter Toilet Toilet # Voids 1 1 - Exam GENERAL: The patient is alert and oriented x3, not in any acute distress. Well developed, well nourished. HEENT: Pupils are round and equally reacting to light. EOMI. No scleral icterus. No conjunctival pallor. Normocephalic, atraumatic. No pharyngeal erythema. No thyromegaly. CARDIOVASCULAR: S1 and S2 present. No murmurs, rubs, or gallops. PULMONARY: Chest is clear to auscultation, no wheezing or crackles. ABDOMEN: Soft, nontender, nondistended, normoactive bowel sounds. No palpable organomegaly. MUSCULOSKELETAL: No joint swelling or deformity. -EXTREMITIES: No cyanosis, clubbing, or pedal edema. Left lower extremity swelling NEUROLOGICAL: Gross neurological examination did not reveal any focal deficits. SKIN: No rashes. no petechiae. - Labs CBC & Chem 7: 11/20/20 05:15 11/20/20 05:15 Assessment and Plan Assessment: -Acute pulmonary embolism with left lower extremity DVT: Patient doesn't have any right ventricular strain, vascular surgery and pulmonary evaluated the patient patient is on Eliquis. Her left lower extremity DVT is believed to be secondary to mostly sedentary lifestyle which may not change because of her history of multiple sclerosis and severe degenerative arthritis monitor joint along with back pain, because of this pulmonary is recommending lifelong anticoagulation. The same thing was extending to the patient -Multiple sclerosis with the progressive weakness, pending PT/OT evaluation for possible ECF placement -Chronic low back pain -Severe degenerative arthritis -Hypertension
[2020-11-21] MEDS: HYDROcodone/APAP 5-325MG 1 EACH TAB PO PRN (23:26)
[2020-11-22] MEDS: TAMSULOSIN 0.4 MG CAP.ER.24H PO SCH (07:28)
[2020-11-22] MEDS: FAMOTIDINE 20 MG TAB PO SCH ×2 (07:28→20:43)
[2020-11-22] MEDS: GABAPENTIN 300 MG CAP PO SCH ×2 (07:29→20:43)
[2020-11-22] MEDS: APIXABAN 5 MG TAB PO SCH ×2 (07:29→20:42)
[2020-11-22] MEDS: SERTRALINE 50 MG TAB PO SCH (07:29)
--- NOTE | 2020-11-22 12:24 | P.PN ---
Subjective Patient is a very pleasant 68-year-old female with known history of multiple sclerosis mostly limited mobility because of multiple sclerosis and chronic weakness came in with the complaints of her left lower extremity numbness increases swelling found to have extensive DVT of the left lower extremity. Patient to mobility is also limited because of spinal stenosis severe also arthritic changes of the left knee patient received a lumbar epidural steroid injection. Patient was also having shortness of breath because of a CT angiogram was obtained which showed moderate burden pulmonary embolism with saddle competent because of which are into inta lesional thrombotic therapy was considered and vascular surgery was consulted, vascular surgery evaluated the patient they recommended continuing heparin echocardiac exam was obtained which did not show any significant right ventricle strain and patient doesn't have any significant troponin elevation because of which they're not recommending proceeding with intralesional thrombolytic therapy. Patient will be transitioned to Eliquis. Today patient denies any chest pain or dyspnea, complaining of from swollen left leg and hold lower extremity but no pain. Patient pending physical therapy evaluation for possible ECF upon discharge Check hemoglobin tomorrow 11/22/2020 Patient with left leg swelling secondary to acute DVT. No leg pain. Acute on Eliquis for acute DVT/PE. Patient pending physical therapy evaluation for possible ECF placement for rehab Objective - Vital Signs Vital signs: Vital Signs Temp 97.9 F 11/22/20 07:50 Pulse 93 11/22/20 08:00 Resp 16 11/22/20 08:00 BP 105/68 11/22/20 07:50 Pulse Ox 96 11/22/20 07:50 Intake & Output 11/21/20 11/22/20 11/22/20 18:59 06:59 18:59 Intake Total 472 Balance 472 Intake: Oral 472 Other: Voiding Method Toilet Toilet Toilet # Voids 1 1 - Exam GENERAL: The patient is alert and oriented x3, not in any acute distress. Well developed, well nourished. HEENT: Pupils are round and equally reacting to light. EOMI. No scleral icterus. No conjunctival pallor. Normocephalic, atraumatic. No pharyngeal erythema. No thyromegaly. CARDIOVASCULAR: S1 and S2 present. No murmurs, rubs, or gallops. PULMONARY: Chest is clear to auscultation, no wheezing or crackles. ABDOMEN: Soft, nontender, nondistended, normoactive bowel sounds. No palpable organomegaly. MUSCULOSKELETAL: No joint swelling or deformity. -EXTREMITIES: No cyanosis, clubbing, or pedal edema. Left lower extremity swelling NEUROLOGICAL: Gross neurological examination did not reveal any focal deficits. SKIN: No rashes. no petechiae. - Labs CBC & Chem 7: 11/20/20 05:15 11/20/20 05:15 Assessment and Plan Assessment: -Acute pulmonary embolism with left lower extremity DVT: Patient doesn't have any right ventricular strain, vascular surgery and pulmonary evaluated the patient patient is on Eliquis. Her left lower extremity DVT is believed to be secondary to mostly sedentary lifestyle which may not change because of her history of multiple sclerosis and severe degenerative arthritis monitor joint along with back pain, because of this pulmonary is recommending lifelong anticoagulation. The same thing was extending to the patient -Multiple sclerosis with the progressive weakness, pending PT/OT evaluation for possible ECF placement -Chronic low back pain -Severe degenerative arthritis -Hypertension
[2020-11-23] MEDS: FAMOTIDINE 20 MG TAB PO SCH ×2 (07:25→20:26)
[2020-11-23] MEDS: SERTRALINE 50 MG TAB PO SCH (07:25)
[2020-11-23] MEDS: GABAPENTIN 300 MG CAP PO SCH ×2 (07:26→20:26)
[2020-11-23] MEDS: APIXABAN 5 MG TAB PO SCH ×2 (07:26→20:26)
[2020-11-23] MEDS: TAMSULOSIN 0.4 MG CAP.ER.24H PO SCH (07:26)
[2020-11-23 14:05] VITALS: RESP 16
[2020-11-23] MEDS: HYDROcodone/APAP 5-325MG 1 EACH TAB PO PRN (17:09)
--- NOTE | 2020-11-23 20:08 | P.PN ---
Subjective Patient is a very pleasant 68-year-old female with known history of multiple sclerosis mostly limited mobility because of multiple sclerosis and chronic weakness came in with the complaints of her left lower extremity numbness increases swelling found to have extensive DVT of the left lower extremity. Patient to mobility is also limited because of spinal stenosis severe also arthritic changes of the left knee patient received a lumbar epidural steroid injection. Patient was also having shortness of breath because of a CT angiogram was obtained which showed moderate burden pulmonary embolism with saddle competent because of which are into inta lesional thrombotic therapy was considered and vascular surgery was consulted, vascular surgery evaluated the patient they recommended continuing heparin echocardiac exam was obtained which did not show any significant right ventricle strain and patient doesn't have any significant troponin elevation because of which they're not recommending proceeding with intralesional thrombolytic therapy. Patient will be transitioned to [facility]. Today patient denies any chest pain or dyspnea, complaining of from swollen left leg and hold lower extremity but no pain. Patient pending physical therapy evaluation for possible ECF upon discharge Check hemoglobin tomorrow 11/22/2020 Patient with left leg swelling secondary to acute DVT. No leg pain. Acute on Eliquis for acute DVT/PE. Patient pending physical therapy evaluation for possible ECF placement for rehab 11/23/2020 Patient is doing well medically. Only with left leg swelling secondary to acute DVT, no pain or cellulitis. i discussed with the mental health social worker today, still pending Prior authorization to go to ECF for rehab Medically stable Objective - Vital Signs Vital signs: Vital Signs Temp 97.8 F 11/23/20 14:00 Pulse 107 H 11/23/20 14:00 Resp 16 11/23/20 14:00 BP 133/72 11/23/20 14:00 Pulse Ox 94 L 11/23/20 14:00 Intake & Output 11/22/20 11/23/20 11/23/20 18:59 06:59 18:59 Other: Voiding Method Toilet Toilet Toilet # Voids 5 1 - Exam GENERAL: The patient is alert and oriented x3, not in any acute distress. Well developed, well nourished. HEENT: Pupils are round and equally reacting to light. EOMI. No scleral icterus. No conjunctival pallor. Normocephalic, atraumatic. No pharyngeal erythema. No thyromegaly. CARDIOVASCULAR: S1 and S2 present. No murmurs, rubs, or gallops. PULMONARY: Chest is clear to auscultation, no wheezing or crackles. ABDOMEN: Soft, nontender, nondistended, normoactive bowel sounds. No palpable organomegaly. MUSCULOSKELETAL: No joint swelling or deformity. -EXTREMITIES: No cyanosis, clubbing, or pedal edema. Left lower extremity swelling NEUROLOGICAL: Gross neurological examination did not reveal any focal deficits. SKIN: No rashes. no petechiae. - Labs CBC & Chem 7: 11/20/20 05:15 11/20/20 05:15 Assessment and Plan Assessment: -Acute pulmonary embolism with left lower extremity DVT: Patient doesn't have any right ventricular strain, vascular surgery and pulmonary evaluated the patient patient is on Eliquis. Her left lower extremity DVT is believed to be secondary to mostly sedentary lifestyle which may not change because of her history of multiple sclerosis and severe degenerative arthritis monitor joint along with back pain, because of this pulmonary is recommending lifelong anticoagulation. The same thing was extending to the patient -Multiple sclerosis with the progressive weakness, pending PT/OT evaluation for possible ECF placement -Chronic low back pain -Severe degenerative arthritis -Hypertension
[2020-11-24] MEDS: APIXABAN 5 MG TAB PO SCH (11:06)
[2020-11-24] MEDS: TAMSULOSIN 0.4 MG CAP.ER.24H PO SCH (11:06)
[2020-11-24] MEDS: SERTRALINE 50 MG TAB PO SCH (11:08)
[2020-11-24] MEDS: GABAPENTIN 300 MG CAP PO SCH (11:08)
[2020-11-24] MEDS: FAMOTIDINE 20 MG TAB PO SCH (11:08)
[2020-11-24 12:22] VITALS: BP 127/81; PULSE 105; TEMP 97.6
--- NOTE | 2020-11-24 14:41 | P.DS ---
Providers Date of admission: 11/18/20 18:14 Attending physician: Karin Neff Consults: 11/18/20 18:14 Consult Physician Routine Consulting Provider: Gissell Molina Consult Reason/Comments: Pulmonary embolism Do you want consulting provider notified?: Yes Consult Physician Stat Consulting Provider: Juan Kirkland Consult Reason/Comments: Critical care management Do you want consulting provider notified?: Yes Primary care physician: Physician Nonstaff Hospital Course: Diagnoses: -Acute pulmonary embolism with left lower extremity DVT -Left leg swelling secondary to above -Multiple sclerosis with the progressive weakness, pending PT/OT evaluation for possible ECF placement -Chronic low back pain -Severe degenerative arthritis -Hypertension Hospital course: Patient is a very pleasant 68-year-old female with known history of multiple sclerosis mostly limited mobility because of multiple sclerosis and chronic weakness came in with the complaints of her left lower extremity numbness increases swelling found to have extensive DVT of the left lower extremity. Patient to mobility is also limited because of spinal stenosis also arthritic changes of the left knee patient received a lumbar epidural steroid injection. Patient was also having shortness of breath because of a CT angiogram was obtained which showed moderate burden pulmonary embolism with saddle competent because of which are into inta lesional thrombotic therapy was considered and vascular surgery was consulted, vascular surgery evaluated the patient they recommended continuing anticoagulation. Echocardiogram was obtained which did not show any significant right ventricle strain and patient doesn't have any significant troponin elevation because of which they're not recommending proceeding with intralesional thrombolytic therapy. Patient was transitioned to [facility]. Today patient denies any chest pain or dyspnea, complaining of from swollen left leg and hold lower extremity but no pain. Patient remained clinically stable She has been evaluated by pulmonary and vascular surgery and both cleared her for discharge Problems and management plan were discussed with the patient and he verbalized understanding and acceptance Patient was found stable and can be discharged home however he needs follow-up as an outpatient. Patient was instructed to follow up with PCP within one week and patient agrees Patient was instructed to follow up with vascular surgeon Dr. Molina as an outpatient and she agrees Physical exam Gen: patient is a AAOx3, no distress CVS: S1-S2, RRR, no murmur Lungs: B/L CTA, no wheezing Abdomen: soft, no distention, no tenderness, positive bowel sounds -Extremity: no leg edema or induration. Left leg swelling Time spent more than 35 minutes Plan - Discharge Summary Discharge Rx Participant: Yes New Discharge Prescriptions: New Apixaban [Eliquis Starter Pack (for VTE)] 0 mg PO DIRECTED 30 Days #1 pack Continue Sertraline [Zoloft] 50 mg PO DAILY Docusate [Colace] 100 mg PO BID PRN #40 cap PRN Reason: Constipation Cyclobenzaprine [Flexeril] 10 mg PO BID PRN #60 tab PRN Reason: Muscle Spasm Gabapentin [Neurontin] 300 mg PO BID #60 cap HYDROcodone/APAP 5-325MG [[place]o 5-325] 1 tab PO Q6HR PRN 5 Days #20 tab PRN Reason: Severe Pain Tamsulosin [Flomax] 0.4 mg PO PC-BRKFST #30 cap.er.24h Famotidine [Pepcid] 20 mg PO BID #60 tablet Changed amLODIPine [Norvasc] 2.5 mg PO DAILY #0 Discharge Medication List Sertraline [Zoloft] 50 mg PO DAILY 10/26/20 [History] Cyclobenzaprine [Flexeril] 10 mg PO BID PRN #60 tab 10/31/20 [Rx] Docusate [Colace] 100 mg PO BID PRN #40 cap 10/31/20 [Rx] Famotidine [Pepcid] 20 mg PO BID #60 tablet 10/31/20 [Rx] Gabapentin [Neurontin] 300 mg PO BID #60 cap 10/31/20 [Rx] HYDROcodone/APAP 5-325MG [[place]o 5-325] 1 tab PO Q6HR PRN 5 Days #20 tab 10/31/20 [Rx] Tamsulosin [Flomax] 0.4 mg PO PC-BRKFST #30 cap.er.24h 10/31/20 [Rx] Apixaban [Eliquis Starter Pack (for VTE)] 0 mg PO DIRECTED 30 Days #1 pack 11/19/20 [Rx] amLODIPine [Norvasc] 2.5 mg PO DAILY #0 11/20/20 [Rx] Follow up Appointment(s)/Referral(s): Conrad Hinson MD [STAFF PHYSICIAN] - 1-2 Days Gissell Molina DO [STAFF PHYSICIAN] - As Needed (If still in [place] in a couple weeks you may follow up with Dr. Molina) [employer] [NON-STAFF] - Activity/Diet/Wound Care/Special Instructions: Copay for [employer] is $47. [facility] pharmacy will apply 1 free month coupon. Discharge Disposition: TRANSFER TO SNF/ECF
--- NOTE | 2020-11-26 07:19 | CDI ---
Documentation Clarification Form Date: 11/26/2020 07:14:00 AM From: Estefania Spears Admit Date: 11/18/2020 06:14:00 PM Patient Name: Amy Morales Visit Number: [id number] Discharge Date: 11/24/2020 05:28:00 PM ATTENTION: The Clinical Documentation Specialists (CDI) and [facility] Coding Staff appreciate your assistance in clarifying documentation. Please respond to the clarification below the line at the bottom and electronically sign. The CDI & [facility] Coding staff will review the response and follow-up if needed. Please note: Queries are made part of the Legal Health Record. If you have any questions, please contact the author of this message via ITS. Dr. Karin Neff, Acute hypoxic respiratory failure is documented in Dr Kirkland's consult on 11/19, but is not noted in subsequent documentation. Clarification is requested. History/Risk Factors: MS, HTN, lumbar spinal stenosis, degenerative arthritis Clinical Indicators: She was having some shortness of breath and returned to ED. Saddle PE & DVT of left femoral and popliteal vein were found. No right heart strain. O2 sats: (11/18 & early 11/19) 98, 96, 93, 93, 92, 92, 92, 90, 90, 91, 93, 92, 92, 91, 91 Treatment: No oxygen or respiratory treatment ordered, IV Heparin Please clarify if the acute hypoxic respiratory failure is: [ ] Acute hypxoic respiratory failure confirmed, resolved [ ] Acute hypoxic respiratory failure ruled out [ ] Other condition, please specify [ ] Unable to determine Unable to determine MTDD
== END 2020-11-24 17:28 | DRG 175 ==
LOC: EC 12:13 → 2SICU 18:14 → 4SSUR 11-20 14:21
PROVIDERS: ADMIT Hospitalist; ATTEND Hospitalist
DX: I26.92 Saddle embolus of pulmonary artery without acute cor pulmonale (principal); J96.01 Acute respiratory failure with hypoxia; I82.412 Acute embolism and thrombosis of left femoral vein; I82.432 Acute embolism and thrombosis of left popliteal vein; D69.6 Thrombocytopenia, unspecified; G35 Multiple sclerosis; I10 Essential (primary) hypertension; G89.29 Other chronic pain; M48.061 Spinal stenosis, lumbar region without neurogenic claudication; K21.9 Gastro-esophageal reflux disease without esophagitis; F32.9 Major depressive disorder, single episode, unspecified; M19.90 Unspecified osteoarthritis, unspecified site; Z79.899 Other long term (current) drug therapy; Z90.49 Acquired absence of other specified parts of digestive tract; Z87.19 Personal history of other diseases of the digestive system; Z87.448 Personal history of other diseases of urinary system; Z86.718 Personal history of other venous thrombosis and embolism; Z86.711 Personal history of pulmonary embolism; Z98.890 Other specified postprocedural states; Z91.013 Allergy to seafood; Z82.49 Family history of ischemic heart disease and other diseases of the circulatory system
CPT/HCPCS: 36415; 71275; 80048; 80053; 84484; 85025; 85610; 85730; 93005; 93306; 96374; 96375; 99291